=== PATIENT | male | born 1940 | race Caucasian/White ===

== ENCOUNTER 2017-01-05 11:55 | Inpatient (IN) ==
[2017-01-05] MEDS ORDERED: methylPREDNISolone 125 MG/2 ML VIAL IVP ONE (12:25)
[2017-01-05] MEDS ORDERED: Ipratropium/Albuterol Neb 3 ML IH ONE (12:25)
--- NOTE | 2017-01-05 12:53 | Emergency Department Note ---
Disposition Clinical Impression: Metastatic cancer, VINCENT (acute kidney injury), Hematuria Dyspnea Qualifiers: Dyspnea type: dyspnea on exertion Qualified Code(s): R06.09 - Other forms of dyspnea Disposition: Admitted As Inpatient Condition: Fair Time of Disposition: 15:58 General Adult HPI - General Chief complaint: ED Abdominal Pain Stated complaint: blood in urine Time Seen by Provider: 01/05/17 12:06 Source: patient Limitations: no limitations Nursing Notes Reviewed: Yes Vital Signs Reviewed: Yes - History of Present Illness HPI Narrative: Patient is a 76-year-old male who presents to [facility] ED with a chief complaint of worsening pneumonia and blood in his urine. States he was diagnosed with pneumonia last week at [facility] and was given a prescription for clindamycin and prednisone. States he has continued to have difficulty breathing especially with exertion. Denies any chest pain. Also states he has had symptoms of dysuria for the last week and then blood in his urine over the last 2 days. He has had some suprapubic abdominal pain as well as right-sided abdominal pain. Past medical history significant for right nephrectomy due to renal cell carcinoma, COPD. Patient states he continues to smoke. Onset (ago): day(s) Location: abdomen Radiation: non-radiation Pain Severity: moderate Pain Scale: 7 Quality: aching Consistency: constant Improves with: nothing Worsens with: movement Associated symptoms: Reports: cough, shortness of breath, weakness. Denies: chest pain, fever/chills, nausea/vomiting Treatments Prior to Arrival: other (clindamycin, prednisone) - Related Data Home Medications Medication Instructions Recorded Confirmed Albuterol Sulfate [Proair Hfa] 2 puff IH Q4H PRN 04/21/16 12/30/16 Famotidine [Pepcid] 20 mg PO BID 04/21/16 12/30/16 Gabapentin [Neurontin] 600 mg PO TID 04/21/16 12/30/16 Lisinopril [Zestril] 20 mg PO DAILY 04/21/16 12/30/16 Nebivolol [Bystolic] 5 mg PO DAILY 04/21/16 12/30/16 Simvastatin [Zocor] 40 mg PO HS 04/21/16 12/30/16 TraMADol [Ultram] 50 mg PO TID PRN 06/26/16 03/06/17 Albuterol Neb [Proventil Neb] 2.5 mg IH Q4HR PRN 12/30/16 12/30/16 Previous Rx's Medication Instructions Recorded Tamsulosin HCl [Flomax] 0.4 mg PO DAILY #30 cap.er.24h 09/14/16 Guaifenesin/Dm/Pseudoephedrine 1 each PO BID #20 tablet 12/16/16 [Capmist Dm Tablet] Clindamycin HCl [Cleocin HCl] 150 mg PO QID #40 capsule 12/30/16 D-Methorphan Hb/P-Epd HCl/Bpm 10 ml PO Q6-8H PRN #240 ml 12/30/16 [Bromfed Dm Cough Syrup] PredniSONE 40 mg PO DAILY #10 tablet 12/30/16 Allergies Allergy/AdvReac Type Severity Reaction Status Date / Time codeine Allergy Vomiting Verified 12/16/16 13:06 Penicillins [PCN] Allergy Vomiting Verified 12/16/16 13:06 All systems ED: reviewed and negative except as stated. Past Medical History - Past Medical History Attestation: Yes The following information was validated with the patient. Source: patient Medical history: Reports: arthritis, cancer, COPD, GERD, hyperlipidemia, hypertension, renal disease Surgical history: Reports: appendectomy, other (Nephrectomy) Psychiatric history: Reports: no psych history - Social History Smoking Status: Current every day smoker Smokeless Tobacco Status: No Alcohol use: Reports: none Drug use: Reports: none Physical Exam - General Limitations: no limitations General appearance: alert, in no apparent distress - Head Head exam: atraumatic, normocephalic, normal inspection - Eye Eye exam: Present: normal appearance, PERRL, EOMI - ENT ENT exam: normal exam, normal oropharynx, mucous membranes moist - Neck Neck exam: Present: normal inspection, full ROM, trachea midline - Chest Chest inspection: Present: normal inspection, symmetric chest wall rise - Respiratory Respiratory exam: Present: wheezes (b/l) - Cardiovascular Cardiovascular exam: Present: regular rate, normal rhythm, normal heart sounds - Abdominal Exam Abdominal exam: Present: soft, tenderness, normal bowel sounds. Absent: distention, guarding, rebound, rigidity Abdominal tenderness: Present: RLQ, moderate - Extremities Exam Extremities exam: Present: normal inspection, full ROM. Absent: tenderness, pedal edema - Back Exam Back exam: Present: normal inspection, full ROM. Absent: tenderness - Neurological Exam Neurological exam: Present: alert, oriented X3 - Psychiatric Psychiatric exam: Present: normal affect, normal mood - Skin Skin exam: Present: warm, dry, intact, normal color Course Course Narrative: Patient seen and examined. Recent diagnosis of pneumonia as well as blood in the urine. We will do a cardiopulmonary workup as well as CT abdomen and pelvis. He is very tender in the abdomen and due to his history of renal cell carcinoma and now hematuria, we will get some imaging. - Reevaluation(s) Reevaluation #1: Patient's lab work showed worsening renal function, elevated liver function tests, mild lactic acidosis. His CT abdomen and pelvis shows likely liver metastasis and bony metastasis. This is new. He has never seen oncology before. I spoke with the urologist Dr. Donovan about the hematuria and blood clots in his bladder. Dr. Donovan came to the bedside to irrigate the bladder. Will consult on patient on the floor. I spoke with hospitalist Sherly Torres who has accepted patient for admission. Time: 15:57 Vital Signs Temperature 97.7 F 01/05/17 11:57 Pulse Rate 77 01/05/17 11:57 Respiratory Rate 16 01/05/17 11:57 Blood Pressure 125/78 01/05/17 11:57 O2 Sat by Pulse Oximetry 98 01/05/17 11:57 Temperature 97.7 F 01/05/17 11:57 Pulse Rate 73 01/05/17 13:35 Respiratory Rate 14 01/05/17 13:35 Blood Pressure 113/72 01/05/17 13:35 O2 Sat by Pulse Oximetry 95 01/05/17 13:35 Oxygen Delivery Oxygen Delivery Room Air Medical Decision Making - Medical Records Medical records reviewed: Yes I reviewed the patient's medical records. - Lab Data Lab results reviewed: Yes I reviewed the patient's lab results. Result diagrams: 01/05/17 13:21 01/05/17 13:21 Lab Results 01/05/17 01/05/17 01/05/17 Range/Units 12:30 13:21 13:21 WBC 11.2 H (4.3-11.1) K/mcL RBC 4.39 (4.19-5.50) M/mcL Hgb 12.8 L (12.9-16.9) g/dL Hct 40.8 (37.5-50.1) % MCV 92.9 (83.0-100.0) fL MCH 29.2 (28.0-33.3) pg MCHC 31.4 L (31.6-35.5) g/dL RDW 13.5 (11.5-14.5) % Plt Count 206 (140-400) K/mcL MPV 10.1 (9.4-12.4) fL Immature Gran % 1.3 (0-4) % Seg Neutrophils % 80.0 % Lymphocytes % 7.2 % Monocytes % 10.0 % Eosinophils % 1.3 % Basophils % 0.2 % Neutrophils # 8.9 (1.6-8.9) K/mcL Lymphocytes # 0.8 (0.6-4.6) K/mcL Monocytes # 1.1 (0.0-1.3) K/mcL Eosinophils # 0.1 (0.0-0.6) K/mcL Basophils # 0.0 (0.0-0.2) K/mcL Sodium 135 L (136-145) mEq/L Potassium 5.5 H (3.5-4.5) mEq/L Chloride 102 (98-109) mEq/L Carbon Dioxide 21 (19-29) mEq/L BUN 65 H (8-26) mg/dL Creatinine 2.12 H (0.72-1.25) mg/dL Est GFR ( Amer) 37 L (> 60) Est GFR (Non-Af Amer) 31 L (> 60) BUN/Creatinine Ratio 31 H (6-26) Glucose 130 H (70-99) mg/dL POC Glucose (58-89) Calculated Osmolality 300 (280-300) Lactic Acid (0.5-2.2) mmol/L Calcium 10.5 (8.6-10.8) mg/dL Total Bilirubin (0.2-1.2) mg/dL Direct Bilirubin (0.0-0.5) mg/dL Indirect Bilirubin (0.0-1.2) mg/dL AST (5-34) Units/L ALT (0-55) Units/L Alkaline Phosphatase (38-126) Units/L Troponin I (0-0.03) ng/mL B-Natriuretic Peptide (0-100) pg/mL Serum Total Protein (6.0-8.3) g/dL Albumin (3.5-5.0) g/dL Globulin (2.4-3.5) g/dL Albumin/Globulin Ratio (1.1-2.2) Ur Specimen Adequacy See below A Urine Color Red A (Yellow) Urine Clarity Turbid A (Clear) Urine pH 6.0 (5.0-8.0) pH Units Ur Specific [place] 1.023 (1.010-1.025) Urine Protein >=300 H (Neg-Trace) mg/dL Urine Glucose (UA) Normal (Normal) mg/dL Urine Ketones Negative (Negative) mg/dL Urine Blood Large H (Negative) Urine Nitrite Negative (Negative) Urine Bilirubin Negative (Negative) Urine Urobilinogen Normal (Normal) mg/dL Ur Leukocyte Esterase Negative (Negative) Urine Microscopic RBC TNTC H (0-3) per hpf Urine Microscopic WBC 15-30 H (0-3) per hpf Ur Squamous Epith Cells Few (None-Few) per lpf Amorphous Sediment Few (Few) Urine Bacteria Many H (None-Few) per hpf Granular Casts Few H (None Seen) per lpf Ur Culture Indicated? YES A (NO) 01/05/17 01/05/17 01/05/17 Range/Units 13:21 13:21 13:21 WBC (4.3-11.1) K/mcL RBC (4.19-5.50) M/mcL Hgb (12.9-16.9) g/dL Hct (37.5-50.1) % MCV (83.0-100.0) fL MCH (28.0-33.3) pg MCHC (31.6-35.5) g/dL RDW (11.5-14.5) % Plt Count (140-400) K/mcL MPV (9.4-12.4) fL Immature Gran % (0-4) % Seg Neutrophils % % Lymphocytes % % Monocytes % % Eosinophils % % Basophils % % Neutrophils # (1.6-8.9) K/mcL Lymphocytes # (0.6-4.6) K/mcL Monocytes # (0.0-1.3) K/mcL Eosinophils # (0.0-0.6) K/mcL Basophils # (0.0-0.2) K/mcL Sodium (136-145) mEq/L Potassium (3.5-4.5) mEq/L Chloride (98-109) mEq/L Carbon Dioxide (19-29) mEq/L BUN (8-26) mg/dL Creatinine (0.72-1.25) mg/dL Est GFR ( Amer) (> 60) Est GFR (Non-Af Amer) (> 60) BUN/Creatinine Ratio (6-26) Glucose (70-99) mg/dL POC Glucose (58-89) Calculated Osmolality (280-300) Lactic Acid 2.6 H (0.5-2.2) mmol/L Calcium (8.6-10.8) mg/dL Total Bilirubin (0.2-1.2) mg/dL Direct Bilirubin (0.0-0.5) mg/dL Indirect Bilirubin (0.0-1.2) mg/dL AST (5-34) Units/L ALT (0-55) Units/L Alkaline Phosphatase (38-126) Units/L Troponin I 0.00 (0-0.03) ng/mL B-Natriuretic Peptide 85 (0-100) pg/mL Serum Total Protein (6.0-8.3) g/dL Albumin (3.5-5.0) g/dL Globulin (2.4-3.5) g/dL Albumin/Globulin Ratio (1.1-2.2) Ur Specimen Adequacy Urine Color (Yellow) Urine Clarity (Clear) Urine pH (5.0-8.0) pH Units Ur Specific [place] (1.010-1.025) Urine Protein (Neg-Trace) mg/dL Urine Glucose (UA) (Normal) mg/dL Urine Ketones (Negative) mg/dL Urine Blood (Negative) Urine Nitrite (Negative) Urine Bilirubin (Negative) Urine Urobilinogen (Normal) mg/dL Ur Leukocyte Esterase (Negative) Urine Microscopic RBC (0-3) per hpf Urine Microscopic WBC (0-3) per hpf Ur Squamous Epith Cells (None-Few) per lpf Amorphous Sediment (Few) Urine Bacteria (None-Few) per hpf Granular Casts (None Seen) per lpf Ur Culture Indicated? (NO) 01/05/17 01/05/17 Range/Units 13:21 14:34 WBC (4.3-11.1) K/mcL RBC (4.19-5.50) M/mcL Hgb (12.9-16.9) g/dL Hct (37.5-50.1) % MCV (83.0-100.0) fL MCH (28.0-33.3) pg MCHC (31.6-35.5) g/dL RDW (11.5-14.5) % Plt Count (140-400) K/mcL MPV (9.4-12.4) fL Immature Gran % (0-4) % Seg Neutrophils % % Lymphocytes % % Monocytes % % Eosinophils % % Basophils % % Neutrophils # (1.6-8.9) K/mcL Lymphocytes # (0.6-4.6) K/mcL Monocytes # (0.0-1.3) K/mcL Eosinophils # (0.0-0.6) K/mcL Basophils # (0.0-0.2) K/mcL Sodium (136-145) mEq/L Potassium (3.5-4.5) mEq/L Chloride (98-109) mEq/L Carbon Dioxide (19-29) mEq/L BUN (8-26) mg/dL Creatinine (0.72-1.25) mg/dL Est GFR ( Amer) (> 60) Est GFR (Non-Af Amer) (> 60) BUN/Creatinine Ratio (6-26) Glucose (70-99) mg/dL POC Glucose 124 H (58-89) Calculated Osmolality (280-300) Lactic Acid (0.5-2.2) mmol/L Calcium (8.6-10.8) mg/dL Total Bilirubin 0.5 (0.2-1.2) mg/dL Direct Bilirubin 0.3 (0.0-0.5) mg/dL Indirect Bilirubin 0.2 (0.0-1.2) mg/dL AST 36 H (5-34) Units/L ALT 59 H (0-55) Units/L Alkaline Phosphatase 262 H (38-126) Units/L Troponin I (0-0.03) ng/mL B-Natriuretic Peptide (0-100) pg/mL Serum Total Protein 7.6 (6.0-8.3) g/dL Albumin 2.7 L (3.5-5.0) g/dL Globulin 4.9 H (2.4-3.5) g/dL Albumin/Globulin Ratio 0.6 L (1.1-2.2) Ur Specimen Adequacy Urine Color (Yellow) Urine Clarity (Clear) Urine pH (5.0-8.0) pH Units Ur Specific [place] (1.010-1.025) Urine Protein (Neg-Trace) mg/dL Urine Glucose (UA) (Normal) mg/dL Urine Ketones (Negative) mg/dL Urine Blood (Negative) Urine Nitrite (Negative) Urine Bilirubin (Negative) Urine Urobilinogen (Normal) mg/dL Ur Leukocyte Esterase (Negative) Urine Microscopic RBC (0-3) per hpf Urine Microscopic WBC (0-3) per hpf Ur Squamous Epith Cells (None-Few) per lpf Amorphous Sediment (Few) Urine Bacteria (None-Few) per hpf Granular Casts (None Seen) per lpf Ur Culture Indicated? (NO) - Radiology Data Radiology results reviewed: Yes I reviewed the patient's radiology results. Chest X-Ray 01/05/17 12:25 IMPRESSION: Right basilar atelectasis or scarring. D/ / Tayo Hill MD / Tayo Hill MD Interpreting Provider: Tayo Hill MD Abdomen/Pelvis CT 01/05/17 12:29 IMPRESSION: Interval development of widespread diffuse suspected hepatic metastasis and scattered bony metastasis. Question developing nodule left adrenal gland. Mild left-sided hydronephrosis. Hemorrhagic clot is noted within the bladder. D/ / 01/05/2017 14:22:47 Mele Jaramillo MD / meryl Interpreting Provider: Mele Jaramillo MD - EKG Data EKG #1 EKG attestation: Yes I reviewed and interpreted this EKG. EKG results narrative: EKG done at 1249 shows normal sinus rhythm with a rate of [address] elevation or depression. Left axis deviation. Inverted T-wave in lead V3 and V4 Attestation Statement - Attestation Attestation: Patient was seen with resident physician. I reviewed the history, physical, assessment and plan, and agree with the findings. I also personally evaluated this patient and had [id number] time with this patient. 76-year-old male presents to the emergency Department chief complaint of worsening pneumonia, and blood in his urine. Patient states that he was treated with an antibiotic for pneumonia approximately of last week, he says he has not gotten any better his cough is actually gotten worse, and now he has blood in his urine. He says the blood occasionally is mild occasionally is more significant is not significant blood clots that he is aware of. He also has some right lower quadrant and suprapubic abdominal pain. The patient continues to be short of breath he is not any chest pain. He is unsure about fevers. On examination ENT is unremarkable. Lungs moving good air has some crackles in the bases bilaterally. Heart is regular rhythm and rate. Abdomen is soft there is tenderness in the suprapubic area in the right lower quadrant without guarding or rigidity. Neurologically the patient's intact. We will do a workup for pneumonia and check for UTI. We will also scan the abdomen to look for abnormalities that could be causing his hematuria. Patient does have only 1 kidney as it was removed secondary to tumor. Findings a CT scan unfortunately revealed what appear to be metastatic liver lesions including some lytic lesions. Patient also has appears to be acute renal failure with some [place] which may or may not be caused by the blood clot in his bladder. Urology was consult and they did irrigate the bladder wall emergency department. With a combination of cancer diagnosis, acute renal failure, hematuria of unknown origin, and dyspnea. We felt that hospitalization was clearly indicated. Hospitalist service was notified and admission was arranged. I agree with the resident physician assessment and plan.
[2017-01-05 12:58] LABS: Bilirubin,Urine Negative (Negative); Blood,Urine Large (Negative); Clarity,Urine Turbid (Clear); Color,Urine Red (Yellow); Glucose,Urine (UA) Normal (Normal); Ketones,Urine Negative (Negative); Leukocyte Esterase,Urine Negative (Negative); Nitrite,Urine Negative (Negative); Protein,Urine >=300 mg/dL (Neg-Trace); Specific Gravity,Urine 1.023 (1.010-1.025); Urobilinogen,Urine Normal (Normal)
[2017-01-05 13:01] LABS: Bacteria,Urine Many per hpf (None-Few); RBC,Urine TNTC per hpf (0-3); WBC,Urine 15-30 per hpf (0-3)
[2017-01-05 13:02] LABS: Squamous Epithelial Cell,Urine Few per lpf (None-Few)
[2017-01-05 13:04] LABS: Amorphous Sediment,Urine Few (Few); Granular Casts,Urine Few per lpf (None Seen)
[2017-01-05 13:30] LABS: Basophils % 0.2 %; Eosinophils # 0.1 K/mcL (0.0-0.6); Eosinophils % 1.3 %; Hematocrit 40.8 % (37.5-50.1); Hemoglobin 12.8 g/dL (12.9-16.9); Immature Granulocytes % 1.3 % (0-4); Lymphocytes # 0.8 K/mcL (0.6-4.6); Lymphocytes % 7.2 %; Mean Corpuscular HGB Conc 31.4 g/dL (31.6-35.5); Mean Corpuscular Hemoglobin 29.2 pg (28.0-33.3); Mean Corpuscular Volume 92.9 fL (83.0-100.0); Mean Platelet Volume 10.1 fL (9.4-12.4); Monocytes # 1.1 K/mcL (0.0-1.3); Neutrophils # 8.9 K/mcL (1.6-8.9); Platelet Count 206 K/mcL (140-400); Red Blood Count 4.39 M/mcL (4.19-5.50); Red Cell Distribution Width 13.5 % (11.5-14.5)
[2017-01-05 13:43] LABS: Calcium 10.5 mg/dL (8.6-10.8); Potassium 5.5 mEq/L (3.5-4.5)
[2017-01-05 13:45] LABS: Albumin 2.7 g/dL (3.5-5.0); Albumin/Globulin Ratio 0.6 (1.1-2.2); Bilirubin,Direct 0.3 mg/dL (0.0-0.5); Bilirubin,Indirect 0.2 mg/dL (0.0-1.2); Bilirubin,Total 0.5 mg/dL (0.2-1.2); Globulin 4.9 g/dL (2.4-3.5); Total Protein 7.6 g/dL (6.0-8.3)
--- NOTE | 2017-01-05 15:38 | Urology - Consult Note ---
Date of Encounter: 01/05/17 Time of Encounter: 15:36 - Assessment and Plan (1) Gross hematuria Current Visit: No Status: Acute Assessment and plan: I placed a 20 Maldivian 2-way catheter. 2 L of sterile water was irrigated through his bladder and all the clot was removed. The irrigation then became colorless. He tolerated the procedure well. He will be admitted to the hospitalist service in regards to his renal insufficiency a new metastatic disease. Also we will follow along. Continue the Santos catheter for now. Urine culture from January 03, 2017 was negative. (2) Right renal mass Current Visit: No Status: Resolved Assessment and plan: He has metastatic renal cell carcinoma. We may need to consider oncology consultation. Urology CN:HPI Consult date: 01/05/17 Reason for consult Urology: Gross Hematuria Requesting physician: Mirtha Prasad History of present illness: 76-year-old man status post right hand-assisted laparoscopic nephrectomy presents with gross hematuria and concern for metastatic renal cell carcinoma. The bleeding started over the last 2 days. It is been bright red. He has been able to void, but he has noticed some clots. He notes some dysuria as well. He denies any lightheadedness or dizziness. He had a right nephrectomy on September 12, 2016 with pathology showing a pT3a renal carcinoma with a positive margin at the vein. Past Med Surg Social Fam HX - Past Medical History Medical history: arthritis, cancer, COPD, GERD, hyperlipidemia, hypertension, renal disease Psychiatric history: no psych history - Past Surgical History Surgical History: appendectomy, other (Nephrectomy) - Social History Smoking Status: Current every day smoker Smokeless Tobacco Status: No Alcohol use: none Drug use: none Medications and Allergies Albuterol Sulfate [Proair Hfa] 2 puff IH Q4H PRN 04/21/16 [History] Famotidine [Pepcid] 20 mg PO BID 04/21/16 [History] Gabapentin [Neurontin] 600 mg PO TID 04/21/16 [History] Lisinopril [Zestril] 20 mg PO DAILY 04/21/16 [History] Nebivolol [Bystolic] 5 mg PO DAILY 04/21/16 [History] Simvastatin [Zocor] 40 mg PO HS 04/21/16 [History] TraMADol [Ultram] 50 mg PO TID PRN 04/21/16 [History] Tamsulosin HCl [Flomax] 0.4 mg PO DAILY #30 cap.er.24h 09/14/16 [Rx] Guaifenesin/Dm/Pseudoephedrine [Capmist Dm Tablet] 1 each PO BID #20 tablet [Rx] Albuterol Neb [Proventil Neb] 2.5 mg IH Q4HR PRN 12/30/16 [History] Clindamycin HCl [Cleocin HCl] 150 mg PO QID #40 capsule 12/30/16 [Rx] D-Methorphan Hb/P-Epd HCl/Bpm [Bromfed Dm Cough Syrup] 10 ml PO Q6-8H PRN #240 ml 12/30/16 [Rx] PredniSONE 40 mg PO DAILY #10 tablet 12/30/16 [Rx] Allergies codeine Allergy (Verified 12/16/16 13:06) Vomiting Penicillins [PCN] Allergy (Verified 12/16/16 13:06) Vomiting Review of Systems - Constitutional no chills, no fever(s) - EENT Nose, mouth and throat: no dizziness - Cardiovascular no chest pain - Respiratory no dyspnea - Gastrointestinal no nausea, no vomiting - Genitourinary dysuria, hematuria, no flank pain - Musculoskeletal no back pain - Integumentary no erythema, no rash - Neurological no weakness - Psychiatric no suicidal ideation - Hematologic/Lymphatic no easy bleeding - Allergic/Immunologic no wheezing Exam Initial Vital Signs Temp Pulse Resp BP Pulse Ox 97.7 F 77 16 125/78 98 01/05/17 11:57 01/05/17 11:57 01/05/17 11:57 01/05/17 11:57 01/05/17 11:57 - General physical appearance Present: well developed, well nourished, no distress - Eyes Absent: icteric - ENT Present: normal nares - Neck Present: trachea midline - Respiratory Present: normal respiratory effort - Cardiovascular Cardiovascular exam IM: RRR - Abdomen Abdomen: Present: soft - Genitourinary normal penis with no external lesions Urology Results - Labs 01/05/17 13:21 01/05/17 13:21 Abnormal lab results WBC 11.2 K/mcL (4.3-11.1) H 01/05/17 13:21 Hgb 12.8 g/dL (12.9-16.9) L 01/05/17 13:21 MCHC 31.4 g/dL (31.6-35.5) L 01/05/17 13:21 Sodium 135 mEq/L (136-145) L 01/05/17 13:21 Potassium 5.5 mEq/L (3.5-4.5) H 01/05/17 13:21 BUN 65 mg/dL (8-26) H 01/05/17 13:21 Creatinine 2.12 mg/dL (0.72-1.25) H 01/05/17 13:21 Est GFR ( Amer) 37 (> 60) L 01/05/17 13:21 Est GFR (Non-Af Amer) 31 (> 60) L 01/05/17 13:21 BUN/Creatinine Ratio 31 (6-26) H 01/05/17 13:21 Glucose 130 mg/dL (70-99) H 01/05/17 13:21 POC Glucose 124 (58-89) H 01/05/17 14:34 Lactic Acid 2.6 mmol/L (0.5-2.2) H 01/05/17 13:21 AST 36 Units/L (5-34) H 01/05/17 13:21 ALT 59 Units/L (0-55) H 01/05/17 13:21 Alkaline Phosphatase 262 Units/L (38-126) H 01/05/17 13:21 Albumin 2.7 g/dL (3.5-5.0) L 01/05/17 13:21 Globulin 4.9 g/dL (2.4-3.5) H 01/05/17 13:21 Albumin/Globulin Ratio 0.6 (1.1-2.2) L 01/05/17 13:21 Ur Specimen Adequacy See below A 01/05/17 12:30 Urine Color Red (Yellow) A 01/05/17 12:30 Urine Clarity Turbid (Clear) A 01/05/17 12:30 Urine Protein >=300 mg/dL (Neg-Trace) H 01/05/17 12:30 Urine Blood Large (Negative) H 01/05/17 12:30 Urine Microscopic RBC TNTC per hpf (0-3) H 01/05/17 12:30 Urine Microscopic WBC 15-30 per hpf (0-3) H 01/05/17 12:30 Urine Bacteria Many per hpf (None-Few) H 01/05/17 12:30 Granular Casts Few per lpf (None Seen) H 01/05/17 12:30 Ur Culture Indicated? YES (NO) A 01/05/17 12:30 Diabetes panel 01/05/17 01/05/17 Range/Units 13:21 13:21 Sodium 135 L (136-145) mEq/L Potassium 5.5 H (3.5-4.5) mEq/L Chloride 102 (98-109) mEq/L Carbon Dioxide 21 (19-29) mEq/L BUN 65 H (8-26) mg/dL Creatinine 2.12 H (0.72-1.25) mg/dL Glucose 130 H (70-99) mg/dL Calcium 10.5 (8.6-10.8) mg/dL AST 36 H (5-34) Units/L ALT 59 H (0-55) Units/L Alkaline Phosphatase 262 H (38-126) Units/L Albumin 2.7 L (3.5-5.0) g/dL Calcium panel 01/05/17 01/05/17 Range/Units 13:21 13:21 Calcium 10.5 (8.6-10.8) mg/dL Albumin 2.7 L (3.5-5.0) g/dL Pituitary panel 01/05/17 Range/Units 13:21 Sodium 135 L (136-145) mEq/L Potassium 5.5 H (3.5-4.5) mEq/L Chloride 102 (98-109) mEq/L Carbon Dioxide 21 (19-29) mEq/L BUN 65 H (8-26) mg/dL Creatinine 2.12 H (0.72-1.25) mg/dL Glucose 130 H (70-99) mg/dL Calcium 10.5 (8.6-10.8) mg/dL Adrenal panel 01/05/17 01/05/17 Range/Units 13:21 13:21 Sodium 135 L (136-145) mEq/L Potassium 5.5 H (3.5-4.5) mEq/L Chloride 102 (98-109) mEq/L Carbon Dioxide 21 (19-29) mEq/L BUN 65 H (8-26) mg/dL Creatinine 2.12 H (0.72-1.25) mg/dL Glucose 130 H (70-99) mg/dL Calcium 10.5 (8.6-10.8) mg/dL Total Bilirubin 0.5 (0.2-1.2) mg/dL AST 36 H (5-34) Units/L ALT 59 H (0-55) Units/L Alkaline Phosphatase 262 H (38-126) Units/L Albumin 2.7 L (3.5-5.0) g/dL All other labs normal. - Imaging CT scan - abdomen: report reviewed, image reviewed CT scan - pelvis: report reviewed, image reviewed Procedures:Urology - Catheter Insertion (Urinary) Prophylactic antibiotics given: No Bladder Scan/Ultrasound used before catheterization: No Estimated amount of urin (mLs): 300 Preparation: Povidone-Iodine Type of catheter inserted: 2 way Catheter Maldivian Size: 20 Topical anesthesia used: Yes Results: successfully catheterized-immediate flow Urine Appearance: Hematuria Patient tolerated procedure: well Complications: none Additional comments: I used a 20 [place] two-way catheter. After irrigating out his bladder with 2 L of water, the urine was clear. Consult Discharge Plan - Plan Referrals: NO,PCP [Primary Care Provider] -
[2017-01-05] MEDS ORDERED: Ondansetron 4 MG/2 ML VIAL IVP PRN (19:00)
--- NOTE | 2017-01-05 19:14 | Internal Med History&Physical ---
<Sherly Torres - Last Filed: 01/05/17 23:21> Date of Encounter: 01/05/17 Time of Encounter: 18:00 Assessment and Plan (1) Metastatic cancer Current visit: Yes Status: Acute 1 patient has a past history of right nephrectomy due to renal cell carcinoma. He has been experiencing dysuria as well as hematuria the past week. CT of abdomen and pelvis revealed possible liver metastases and bone metastases. Patient has never seen oncology before we will consult oncology 2 presently pain controlled we will continue with present pain regime (2) UTI (urinary tract infection) Current visit: Yes Status: Acute 1 urinalysis revealed wbc and bacteria. Will initiate on Rocephin 3 obtain urine culture as well as blood culture Qualifiers: Urinary tract infection type: site unspecified Hematuria presence: with hematuria Qualified Code(s): N39.0 - Urinary tract infection, site not specified; R31.9 - Hematuria, unspecified (3) Hyperkalemia Current visit: Yes Status: Acute 1 potassium is 5.5 we will treat with Keflex A calcium gluconate and bicarbonate recheck potassium (4) DVT prophylaxis Current visit: Yes Status: Acute AILYN joshuaphuc (5) VINCENT (acute kidney injury) Current visit: Yes Status: Acute 1 she did undergo right nephrectomy last year. His creatinine was 1.8 today to 2.12. We will continue to monitor creatinines 2 we will give IV fluids 3 avoid nephrotoxins 4 renal dose antibiotics (6) Hematuria Current visit: Yes Status: Acute 1 has been experiencing hematuria for the past 2 days he does have a history of renal cell carcinoma with right nephrectomy last year. CT of abdomen and pelvis does demonstrate metastasis to liver and bony metastases. Santos placed. 2 urology saw the patient and irrigated Santos. Urology consult 3 we will treat for UTI (7) COPD exacerbation Current visit: No Status: Acute 1 she was treated last week for pneumonia however chest x-ray this week appears clear with just atelectasis. Suspect shortness of breath related to COPD exacerbation we will continue with steroids at this time as well as DuoNeb's and oxygen as needed Internal Medicine - H&P: HPI Chief complaint: Shortness of breath and hematuria Admitted From: Emergency Dept Plans for Post Hospital Care: Home History of present illness: Mr. Ngo is a 76 year old male past medical history of right nephrectomy due to renal cell carcinoma COPD current smoker GERD hypertension. Currently patient is diagnosed last week at [facility] with pneumonia and was given a prescription for clindamycin as well as prednisone. He taking medication as prescribed however he continued to have difficulty breathing especially on exertion. He denies any fevers chills nausea vomiting chest pain. He did take breathing treatments however they did not relieve his symptoms. He had a nonproductive cough. Throughout this week he has been experiencing dysuria and within the past 2 days he has noted hematuria. He has also had l sharp stabbing pain right lower quadrant extending to suprapubic area. The pain is worse upon coughing because way with rest. He had a right nephrectomy in August 2016 due to renal cell carcinoma and had been doing well up until the past 2 weeks. He does express that he has had a 9-12 pound weight loss and a little over a week. He presented to the ER with the above complaints according to records he had worsening renal function with elevated liver functions and mild lactose acidosis. CT of abdomen and pelvis revealed likely liver metastases and bony metastases which is new from previous CT. EKG showed normal sinus rhythm. Urology was consulted and Dr. Donovan saw patient at bedside irrigated bladder until clear. Urinalysis does reveal UTI. Patient was given albuterol as well as steroid has been admitted for further work up evaluation presently patient denies any chest pain shortness of breath he is single side effect with Santos draining bright red urine. Does not appear to be in any respiratory distress upon auscultation his lungs sounds are clear. His abdomen is soft and round tender to palpation in right lower quadrant with no guarding. He is hemodynamically stable at this timeI reviewed this case with Dr England who agrees with plan Past Med Surg Social Fam HX - Past Medical History Medical history: arthritis, cancer, COPD, GERD, hyperlipidemia, hypertension, renal disease Psychiatric history: no psych history - Past Surgical History Surgical History: appendectomy, other - Social History Smoking Status: Current every day smoker Packs per day: 3 Smokeless Tobacco Status: No Alcohol use: none Drug use: none - Family History Mother Living Status: Cause of : Aneurysm Hx Family Cardiac Disorders: Yes Hx Family Respiratory Disorders: Yes (COPD) Hx Family Cancer: Yes (Lung) Hx Family GI Disorders: No Hx Family Genitourinary Disorders: No Hx Family Endocrine Disorder: No Hx Family Musculoskeletal Disorders: No Hx Family Neuromuscular Disorders: No Hx Family Neurologic Disorders: No Hx Family HEENT Disorders: No Hx Family Autoimmune Disorders: No Hx Family Reproductive Disorders: No Hx Family Medical Disorders: No Internal Medicine - H&P: Meds Albuterol Sulfate [Proair Hfa] 2 puff IH Q4H PRN 04/21/16 [History] Famotidine [Pepcid] 20 mg PO BID 04/21/16 [History] Gabapentin [Neurontin] 600 mg PO TID 04/21/16 [History] Lisinopril [Zestril] 20 mg PO DAILY 04/21/16 [History] Nebivolol [Bystolic] 5 mg PO DAILY 04/21/16 [History] Simvastatin [Zocor] 40 mg PO HS 04/21/16 [History] TraMADol [Ultram] 50 mg PO TID PRN 04/21/16 [History] Tamsulosin HCl [Flomax] 0.4 mg PO DAILY #30 cap.er.24h 09/14/16 [Rx] Albuterol Neb [Proventil Neb] 2.5 mg IH Q4HR PRN 12/30/16 [History] Clindamycin HCl [Cleocin HCl] 150 mg PO QID #40 capsule 12/30/16 [Rx] D-Methorphan Hb/P-Epd HCl/Bpm [Bromfed Dm Cough Syrup] 10 ml PO Q6-8H PRN #240 ml 12/30/16 [Rx] PredniSONE 40 mg PO DAILY #10 tablet 12/30/16 [Rx] Acetaminophen [Tylenol] 650 mg PO BID PRN 01/05/17 [History] Allergies codeine Adverse Reaction (Verified 01/05/17 16:06) Vomiting Penicillins [PCN] Adverse Reaction (Verified 01/05/17 16:06) Vomiting All Systems PM: A 10-system review of systems was performed and is negative for pertinent findings except as documented above in the HPI. - Constitutional Constitutional: anorexia, weight loss - Cardiovascular Cardiovascular ROS IM: no chest pain, no diaphoresis, no dyspnea, no lightheadedness, no palpitations, no syncope - Respiratory Respiratory: cough, dyspnea on exertion - Gastrointestinal Gastrointestinal: abdominal pain - Genitourinary Genitourinary ROS male: dysuria, hematuria - Musculoskeletal Musculoskeletal ROS IM: no numbness, no tingling - Integumentary Integumentary IM: no rash, no unusual bruising - Neurological Neurological ROS: no confusion, no convulsions, no focal weakness, no numbness, no tingling, no tremor(s) - Constitutional Vitals: Temp Pulse Resp BP Pulse Ox 97.5 F L 69 18 168/90 97 01/05/17 16:41 01/05/17 16:41 01/05/17 16:41 01/05/17 16:41 01/05/17 16:41 General appearance: Present: A&O X 3, answers questions appropriately - Head Head exam: Present: atraumatic, normocephalic - Respiratory Respiratory exam: Present: CTAB. Absent: accessory muscle use, rales, rhonchi, wheezes - Cardiovascular Cardiovascular exam: Present: RRR, +S1, +S2. Absent: diastolic murmur, gallop, rubs, systolic murmur - GI/Abdominal GI/Abdominal exam: Present: normal bowel sounds, soft, no peritoneal signs. Absent: distended, tenderness - Additional comments: Noted dark red urine in Santos bag - Extremities Exam Extremities exam: Present: warm, radial pulses palpable and symetrical. Absent : calf tenderness, cyanotic, pedal edema - Neurological Exam Neurological exam: Present: CN II-XII intact, oriented X3, no focal deficits. Absent: pronater drift, facial droop, speech deficit - Skin Skin exam: Present: dry, intact Internal Med - H&P Results - Labs CBC & Chem 7: 01/05/17 19:11 01/05/17 22:47 - EKG Data EKG shows normal: sinus rhythm - Diagnostic Studies Other Images Additional comments: Chest X-Ray 01/05/17 12:25 IMPRESSION: Right basilar atelectasis or scarring. D/ / Tayo Hill MD / Tayo Hill MD Interpreting Provider: Tayo Hill MD Abdomen/Pelvis CT 01/05/17 12:29 IMPRESSION: Interval development of widespread diffuse suspected hepatic metastasis and scattered bony metastasis. Question developing nodule left adrenal gland. Mild left-sided hydronephrosis. Hemorrhagic clot is noted within the bladder. D/ / 01/05/2017 14:22:47 Mele Jaramillo MD / meryl Interpreting Provider: Mele Jaramillo MD - VTE Reasons for not Prescribing Prophylaxis: Medical contraindication <Jesus England R - Last Filed: 01/05/17 23:38> Internal Medicine - H&P: HPI History of present illness: Mr. Ngo is a 76 year old male All Systems PM: A 10-system review of systems was performed and is negative for pertinent findings except as documented above in the HPI. - Constitutional Vitals: Temp Pulse Resp BP Pulse Ox 97.6 F 70 18 135/75 93 L 01/05/17 21:45 01/05/17 21:45 01/05/17 22:50 01/05/17 21:45 01/05/17 22:50 Internal Med - H&P Results - Labs CBC & Chem 7: 01/05/17 19:11 01/05/17 22:47 Labs: Short CBC 01/05/17 Range/Units 19:11 Hgb 13.1 (12.9-16.9) g/dL Hct 41.5 (37.5-50.1) % BMP 01/05/17 22:47 Sodium 135 L Potassium 5.8 H Chloride 103 Carbon Dioxide 20 BUN 72 H Creatinine 2.17 H Glucose 189 H Calcium 10.1 - Attending Attestation I examined this patient and my medical decision-making was reviewed with the HEALTH SPA MANAGER/ Advanced Practice Nurse. I agree with the documented findings, disposition and treatment plan as described except to the extent set forth below. 76-year-old man status post laparoscopic right nephrectomy for RCC, presents with gross hematuria with clots and dysuria. Denies fever, chills, cough, expectoration or cigarettes. He apparently was treated with antibiotics ( clindamycin) recently for suspected pneumonia. Chest x-ray during this presentation showed right basilar atelectasis/scarring. CT abdomen and pelvis showed interval development of widespread diffuse suspected hepatic metastasis and scattered bony metastasis. Hemorrhagic clot in the bladder. Patient was seen by urologist, the catheter was placed with bladder irrigation and once oncology consultation. O/E: Not in acute distress. No abdominal tenderness. Santos catheter draining bloody urine. A/P: Gross hematuria: Likely secondary to urinary tract infection versus urothelial malignancy. Urologist consulted. Monitor Hemoglobin and hematocrit and consider PRBC transfusion, if Hgb<8. Treat for UTI, with ceftriaxone. Treat hyperkalemia with kayexalate and sodium bicarbonate. Monitor potassium level and hold Lisinopril. Oncology consult for advice on suspected metastatic disease.
[2017-01-05 19:25] LABS: Hematocrit 41.5 % (37.5-50.1); Hemoglobin 13.1 g/dL (12.9-16.9)
[2017-01-05] MEDS ORDERED: 0.9 % Sodium Chloride 1,000 ML IVC SCH (20:00)
[2017-01-05] MEDS ORDERED: Albuterol 2.5 MG/3 ML NEBULIZER IH PRN (20:00)
[2017-01-05] MEDS: Lactobacillus 1 EACH CAP.SPRINK PO SCH (20:43)
[2017-01-05] MEDS: Gabapentin 300 MG CAPSULE PO SCH (20:44)
[2017-01-05] MEDS: Famotidine 20 MG TABLET PO SCH (20:44)
[2017-01-05] MEDS ORDERED: Ipratropium/Albuterol Neb 3 ML IH PRN (21:25)
[2017-01-05] MEDS: Ipratropium/Albuterol Neb 3 ML IH SCH (22:50)
[2017-01-05 23:07] LABS: Calcium 10.1 mg/dL (8.6-10.8); Potassium 5.8 mEq/L (3.5-4.5)
[2017-01-05] MEDS ORDERED: Calcium Gluconate 1,000 MG in D5% in Water 100 ML IVPB ONE (23:25)
[2017-01-06] MEDS: 0.9 % Sodium Chloride 1,000 ML IVC SCH ×2 (00:19→12:07)
[2017-01-06 01:19] LABS: Basophils % 0.2 %; Hematocrit 39.3 % (37.5-50.1); Hemoglobin 12.5 g/dL (12.9-16.9); Immature Granulocytes % 1.5 % (0-4); Immature Platelets 3.6 % (1.1-6.1); Lymphocytes # 0.5 K/mcL (0.6-4.6); Lymphocytes % 4.6 %; Mean Corpuscular HGB Conc 31.8 g/dL (31.6-35.5); Mean Corpuscular Hemoglobin 29.5 pg (28.0-33.3); Mean Corpuscular Volume 92.7 fL (83.0-100.0); Mean Platelet Volume 10.3 fL (9.4-12.4); Monocytes # 0.4 K/mcL (0.0-1.3); Monocytes % 4.1 %; Neutrophils # 9.6 K/mcL (1.6-8.9); Platelet Count 201 K/mcL (140-400); Red Blood Count 4.24 M/mcL (4.19-5.50); Red Cell Distribution Width 13.4 % (11.5-14.5); Segmented Neutrophils % 89.6 %
[2017-01-06 01:31] LABS: Calcium 10.8 mg/dL (8.6-10.8); Potassium 5.4 mEq/L (3.5-4.5)
[2017-01-06] MEDS: Ipratropium/Albuterol Neb 3 ML IH SCH ×4 (04:10→21:08)
--- NOTE | 2017-01-06 07:18 | Urology Progress Note ---
Date of Encounter: 01/06/17 Time of Encounter: 07:16 - Assessment and Plan (1) Gross hematuria Current Visit: No Status: Acute Assessment and plan: Hematuria after right nephrectomy. 1. Continue dennis for now. I will ask RN to hand irrigate catheter. If bleeding persists, may need to change out to [address] Dennis. 2. Appreciate IM support. 3. Dr. Henriquez aware of patient. Progress Note Narrative: Feels okay today. Urine was somewhat bloody overnight. Objective Initial Vital Signs Temp Pulse Resp BP Pulse Ox 97.7 F 77 16 125/78 98 01/05/17 11:57 01/05/17 11:57 01/05/17 11:57 01/05/17 11:57 01/05/17 11:57 - General physical appearance Present: well developed, well nourished, no distress - Respiratory Present: normal respiratory effort - Abdomen Present: soft - Genitourinary Present: normal penis with no external lesions Urine Appearance: Present: Hematuria (Catheter in place. Urine is slightly bloody.) - Labs 01/06/17 01:14 01/06/17 01:14 Diabetes panel 01/05/17 01/06/17 Range/Units 22:47 01:14 Sodium 135 L 136 (136-145) mEq/L Potassium 5.8 H 5.4 H (3.5-4.5) mEq/L Chloride 103 103 (98-109) mEq/L Carbon Dioxide 20 18 L (19-29) mEq/L BUN 72 H 71 H (8-26) mg/dL Creatinine 2.17 H 2.10 H (0.72-1.25) mg/dL Glucose 189 H 192 H (70-99) mg/dL Calcium 10.1 10.8 (8.6-10.8) mg/dL Calcium panel 01/05/17 01/06/17 Range/Units 22:47 01:14 Calcium 10.1 10.8 (8.6-10.8) mg/dL Pituitary panel 01/05/17 01/06/17 Range/Units 22:47 01:14 Sodium 135 L 136 (136-145) mEq/L Potassium 5.8 H 5.4 H (3.5-4.5) mEq/L Chloride 103 103 (98-109) mEq/L Carbon Dioxide 20 18 L (19-29) mEq/L BUN 72 H 71 H (8-26) mg/dL Creatinine 2.17 H 2.10 H (0.72-1.25) mg/dL Glucose 189 H 192 H (70-99) mg/dL Calcium 10.1 10.8 (8.6-10.8) mg/dL Adrenal panel 01/05/17 01/06/17 Range/Units 22:47 01:14 Sodium 135 L 136 (136-145) mEq/L Potassium 5.8 H 5.4 H (3.5-4.5) mEq/L Chloride 103 103 (98-109) mEq/L Carbon Dioxide 20 18 L (19-29) mEq/L BUN 72 H 71 H (8-26) mg/dL Creatinine 2.17 H 2.10 H (0.72-1.25) mg/dL Glucose 189 H 192 H (70-99) mg/dL Calcium 10.1 10.8 (8.6-10.8) mg/dL - VTE Reasons for not Prescribing Prophylaxis: Medical contraindication Consult Discharge Plan - Plan Referrals: NO,PCP [Primary Care Provider] -
[2017-01-06] MEDS ORDERED: Lisinopril 20 MG TABLET PO SCH (09:00)
[2017-01-06] MEDS ORDERED: Pantoprazole 40 MG VIAL IVP SCH (09:00)
[2017-01-06] MEDS: Gabapentin 300 MG CAPSULE PO SCH ×3 (09:13→22:07)
[2017-01-06] MEDS: Lactobacillus 1 EACH CAP.SPRINK PO SCH ×2 (09:13→22:07)
[2017-01-06] MEDS: predniSONE 20 MG TABLET PO SCH (09:14)
[2017-01-06] MEDS: traMADol 50 MG TABLET PO PRN ×2 (09:30→22:16)
[2017-01-06] MEDS ORDERED: Nicotine 21 MG PATCH.TD24 TD SCH (12:15)
--- NOTE | 2017-01-06 14:35 | Internal Med Progress Note ---
Date of Encounter: 01/06/17 Time of Encounter: 14:32 - Assessment and plan (1) VINCENT (acute kidney injury) Current Visit: Yes Status: Acute Assessment and plan: did undergo right nephrectomy last year. His creatinine was 1.8 today to 2.10. We will continue to monitor creatinine we will give IV fluids avoid nephrotoxins renal dose antibiotics (2) Hematuria Current Visit: Yes Status: Acute Assessment and plan: has been experiencing hematuria for the past 2 days he does have a history of renal cell carcinoma with right nephrectomy last year. CT of abdomen and pelvis does demonstrate metastasis to liver and bony metastases. Dennis placed. urology saw the patient and irrigated Dennis. Urology following the patient, will follow recommendations we will treat for UTI (3) Metastatic cancer Current Visit: Yes Status: Acute Assessment and plan: patient has a past history of right nephrectomy due to renal cell carcinoma. He has been experiencing dysuria as well as hematuria the past week. CT of abdomen and pelvis revealed possible liver metastases and bone metastases. oncology has been consulted, will follow recommendtaions (4) UTI (urinary tract infection) Current Visit: Yes Status: Acute Assessment and plan: the LE and nitrite was negative, he does have wbc in the urine but the cx is negative will stop the antibiotics today. no fever or lucocytosis. Qualifiers: Urinary tract infection type: site unspecified Hematuria presence: with hematuria Qualified Code(s): N39.0 - Urinary tract infection, site not specified; R31.9 - Hematuria, unspecified - Time Spent With Patient 25 - 35 minutes - Subjective Interval history: gokul seen at the bedside, admitted for hematuria, s/p nephrectomy and dennis placement c/o some discomfort from the dennis, as some buring and he says that the catheter is too big. he denies abdominal pain, n/v, fever at home - Constitutional Vitals: Temp Pulse Resp BP Pulse Ox 98.1 F 91 16 120/71 96 01/06/17 11:04 01/06/17 11:04 01/06/17 11:04 01/06/17 11:04 01/06/17 11:04 General appearance: Present: A&O X 3, answers questions appropriately Exam: - Head Head exam: Present: atraumatic, normocephalic - Respiratory Respiratory exam: Present: CTAB. Absent: accessory muscle use, rales, rhonchi, wheezes - Cardiovascular Cardiovascular exam: Present: RRR, +S1, +S2. Absent: diastolic murmur, gallop, rubs, systolic murmur - GI/Abdominal GI/Abdominal exam: Present: normal bowel sounds, soft, no peritoneal signs. Absent: distended, tenderness - Additional comments: Noted dark red urine in Dennis bag - Extremities Exam Extremities exam: Present: warm, radial pulses palpable and symetrical. Absent : calf tenderness, cyanotic, pedal edema - Neurological Exam Neurological exam: Present: CN II-XII intact, oriented X3, no focal deficits. Absent: pronater drift, facial droop, speech deficit - Skin Skin exam: Present: dry, intact Internal Medicine: Result - Labs CBC & Chem 7: 01/06/17 01:14 01/06/17 01:14 Labs: Short CBC 01/05/17 01/06/17 Range/Units 19:11 01:14 WBC 10.7 (4.3-11.1) K/mcL Hgb 13.1 12.5 L (12.9-16.9) g/dL Hct 41.5 39.3 (37.5-50.1) % Plt Count 201 (140-400) K/mcL Neutrophils # 9.6 H (1.6-8.9) K/mcL BMP 01/05/17 01/06/17 22:47 01:14 Sodium 135 L 136 Potassium 5.8 H 5.4 H Chloride 103 103 Carbon Dioxide 20 18 L BUN 72 H 71 H Creatinine 2.17 H 2.10 H Glucose 189 H 192 H Calcium 10.1 10.8 - VTE Reasons for not Prescribing Prophylaxis: Medical contraindication Consult Discharge Plan - Plan Referrals: NO,PCP [Primary Care Provider] -
--- NOTE | 2017-01-06 14:39 | Oncology Inp Consult Note ---
<Marium Jacques E - Last Filed: 01/06/17 16:45> Date of Encounter: 01/06/17 Time of Encounter: 15:30 Assessment and Plan (1) History of renal cell carcinoma Status: Acute (2) Metastatic cancer Status: Acute (3) Gross hematuria Status: Acute - Data of Consult Patient: new to practice Requesting Physician: Hansel Barroso MD Primary Care Provider: PCP NO - Consult Narrative Reason for consult: Hematuria, history of renal cell carcinoma History of present illness: Mr. Ngo is a 76 year old male minute to [facility] through the emergency room. At that time he presented with complaint of worsening pneumonia and blood in his urine. He states that he had had some midthoracic pain for several weeks. He states his pain has worsened. He also reports that he was having a bit of lower abdominal discomfort and just suddenly one morning after drinking coffee he urinated and at that time it was bright red blood. He was found to have worsening renal function, elevated liver function tests, mild lactic acidosis, and his CT of the abdomen and pelvis showed likely liver metastasis and bony metastasis and a question of a developing nodule in the left adrenal gland. A mild left hydronephrosis. There was also hemorrhagic clot noted within the bladder. He reports that he had a nephrectomy in August due to renal cell carcinoma but did not have other modalities of therapy. In reviewing his pathology report from 09/12/2016 indicates a right nephrectomy cell, clear cell, 6.5 cm and was multifocal, grade 3, and margins were positive with aPT3a, pNx, pM n/a. He continues to report having severe pain in the thoracic spine, he states the pain increases with movement and even with taking a deep breath. He states that he does not want to take analgesics for pain. Order CAT scan of the chest and LDH for further workup. Past Med Surg Social Fam HX - Past Medical History Medical history: arthritis, cancer (-Clear-cell), COPD, GERD, hyperlipidemia, hypertension, renal disease Psychiatric history: no psych history - Past Surgical History Surgical History: appendectomy, other - Social History Smoking Status: Current every day smoker Packs per day: 3 Smokeless Tobacco Status: No Alcohol use: none Drug use: none - Family History Mother Living Status: Cause of : Aneurysm Hx Family Cardiac Disorders: Yes Hx Family Respiratory Disorders: Yes (COPD) Hx Family Cancer: Yes (Lung) Hx Family GI Disorders: No Hx Family Genitourinary Disorders: No Hx Family Endocrine Disorder: No Hx Family Musculoskeletal Disorders: No Hx Family Neuromuscular Disorders: No Hx Family Neurologic Disorders: No Hx Family HEENT Disorders: No Hx Family Autoimmune Disorders: No Hx Family Reproductive Disorders: No Hx Family Medical Disorders: No Medications and Allergies Albuterol Sulfate [Proair Hfa] 2 puff IH Q4H PRN 04/21/16 [History] Famotidine [Pepcid] 20 mg PO BID 04/21/16 [History] Gabapentin [Neurontin] 600 mg PO TID 04/21/16 [History] Lisinopril [Zestril] 20 mg PO DAILY 04/21/16 [History] Nebivolol [Bystolic] 5 mg PO DAILY 04/21/16 [History] Simvastatin [Zocor] 40 mg PO HS 04/21/16 [History] TraMADol [Ultram] 50 mg PO TID PRN 04/21/16 [History] Tamsulosin HCl [Flomax] 0.4 mg PO DAILY #30 cap.er.24h 09/14/16 [Rx] Albuterol Neb [Proventil Neb] 2.5 mg IH Q4HR PRN 12/30/16 [History] Clindamycin HCl [Cleocin HCl] 150 mg PO QID #40 capsule 12/30/16 [Rx] D-Methorphan Hb/P-Epd HCl/Bpm [Bromfed Dm Cough Syrup] 10 ml PO Q6-8H PRN #240 ml 12/30/16 [Rx] PredniSONE 40 mg PO DAILY #10 tablet 12/30/16 [Rx] Acetaminophen [Tylenol] 650 mg PO BID PRN 01/05/17 [History] Allergies codeine Adverse Reaction (Verified 01/05/17 16:06) Vomiting Penicillins [PCN] Adverse Reaction (Verified 01/05/17 16:06) Vomiting All systems: reviewed and no additional remarkable complaints except as stated Constitutional: Present: fatigue, weakness (Left arm and leg that he been present since November) Cardiovascular: Present: leg edema Respiratory: Present: dyspnea on exertion, pain on inspiration (The right side in the mid thoracic spine), other (With the pain in his thoracic spine and rib area being so severe that it nearly takes his breath away) Musculoskeletal: Present: muscle weakness (Left arm and left leg) Oncology - Exam - Constitutional Vitals: Temp Pulse Resp BP Pulse Ox 97.3 F L 73 16 114/96 93 L 01/06/17 14:35 01/06/17 14:35 01/06/17 14:35 01/06/17 14:35 01/06/17 14:35 General appearance: cooperative, no acute distress - Head Head exam: Present: normocephalic - ENT ENT exam: Present: mucous membranes moist - Respiratory Respiratory exam: Present: CTAB Additional comments: Reports pain in the midthoracic spine area on deep inspiration. - Cardiovascular Cardiovascular exam: Present: RRR - GI/Abdominal GI/Abdominal exam: Present: normal bowel sounds, soft - Additional comments: Interim place with dark red urine - Neurological Exam Neurological exam: Present: alert, oriented X3 Additional comments: Motor strength in left upper and lower extremity decreased compared to right Oncology - Results - Labs Labs: Short CBC 01/05/17 01/06/17 Range/Units 19:11 01:14 WBC 10.7 (4.3-11.1) K/mcL Hgb 13.1 12.5 L (12.9-16.9) g/dL Hct 41.5 39.3 (37.5-50.1) % Plt Count 201 (140-400) K/mcL Neutrophils # 9.6 H (1.6-8.9) K/mcL BMP 01/05/17 01/06/17 22:47 01:14 Sodium 135 L 136 Potassium 5.8 H 5.4 H Chloride 103 103 Carbon Dioxide 20 18 L BUN 72 H 71 H Creatinine 2.17 H 2.10 H Glucose 189 H 192 H Calcium 10.1 10.8 Consult Discharge Plan - Plan Referrals: Aiden Swartz DO [Primary Care Provider] - <Hyun Watts S - Last Filed: 01/07/17 12:41> - Data of Consult Requesting Physician: Hansel Barroso MD Primary Care Provider: PCP NO - Consult Narrative History of present illness: Mr. Ngo is a 76 year old male Oncology - Exam - Constitutional Vitals: Temp Pulse Resp BP Pulse Ox 97.3 F L 73 18 114/96 94 L 01/06/17 14:35 01/06/17 14:35 01/06/17 16:05 01/06/17 14:35 01/06/17 16:05 Oncology - Results - Labs Labs: Short CBC 01/05/17 01/06/17 Range/Units 19:11 01:14 WBC 10.7 (4.3-11.1) K/mcL Hgb 13.1 12.5 L (12.9-16.9) g/dL Hct 41.5 39.3 (37.5-50.1) % Plt Count 201 (140-400) K/mcL Neutrophils # 9.6 H (1.6-8.9) K/mcL BMP 01/05/17 01/06/17 22:47 01:14 Sodium 135 L 136 Potassium 5.8 H 5.4 H Chloride 103 103 Carbon Dioxide 20 18 L BUN 72 H 71 H Creatinine 2.17 H 2.10 H Glucose 189 H 192 H Calcium 10.1 10.8 - Attending Attestation 1. Right renal cell carcinoma post nephrectomy on 09/12/2016. Tumor size 6.5 cm multifocal limited to kidney clear cell type. No sarcomatoid future. Kaelyn grade 3 No lymph node dissection. Renal vein margin positive CT abdomen August 2016 was negative for metastasis Presents with metastatic carcinoma likely renal cell carcinoma. CT of chest without contrast on 01/06/[address] of abdomen and pelvis without contrast 08/2017 showed right hilar mass with invasion to lungs, and mediastinal adenopathy. Also postobstructive pneumonia right lower lobe Diffuse liver metastasis Lytic bone lesions and subcutaneous nodules. Also left upper and lower activity weakness MRI brain without contrast 01/06/2017 negative for metastasis 2. Hematuria. Urology involved. Treatment recommendation once hematuria improves. Most likely to start with Pazopanib or sunitinib. 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 If necessary would do MRI of the spine. May consider radiation for palliation especially to the painful metastasis Bronchoscopy and biopsy of the right hilar mass should give the diagnosis
--- NOTE | 2017-01-06 15:33 | Electrocardiograph Report ---
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
[2017-01-06] MEDS: Nicotine 21 MG PATCH.TD24 TD SCH (22:07)
[2017-01-06] MEDS: Famotidine 20 MG TABLET PO SCH (22:07)
[2017-01-07] MEDS: Ipratropium/Albuterol Neb 3 ML IH SCH ×4 (03:56→21:08)
[2017-01-07] MEDS: 0.9 % Sodium Chloride 1,000 ML IVC SCH ×2 (04:01→20:33)
[2017-01-07 05:28] LABS: Basophils % 0.1 %; Eosinophils % 0.3 %; Hematocrit 37.6 % (37.5-50.1); Hemoglobin 11.5 g/dL (12.9-16.9); Immature Granulocytes % 1.2 % (0-4); Lymphocytes # 0.9 K/mcL (0.6-4.6); Lymphocytes % 6.8 %; Mean Corpuscular HGB Conc 30.6 g/dL (31.6-35.5); Mean Corpuscular Hemoglobin 28.9 pg (28.0-33.3); Mean Corpuscular Volume 94.5 fL (83.0-100.0); Mean Platelet Volume 10.6 fL (9.4-12.4); Monocytes # 1.5 K/mcL (0.0-1.3); Platelet Count 205 K/mcL (140-400); Red Blood Count 3.98 M/mcL (4.19-5.50); Red Cell Distribution Width 13.7 % (11.5-14.5); Segmented Neutrophils % 80.6 %
[2017-01-07 05:43] LABS: Potassium 4.2 mEq/L (3.5-4.5)
[2017-01-07 05:44] LABS: Calcium 9.1 mg/dL (8.6-10.8)
[2017-01-07] MEDS: traMADol 50 MG TABLET PO PRN ×2 (08:36→20:37)
[2017-01-07] MEDS: predniSONE 20 MG TABLET PO SCH (08:37)
[2017-01-07] MEDS: Lactobacillus 1 EACH CAP.SPRINK PO SCH ×2 (08:37→20:33)
[2017-01-07] MEDS: Nicotine 21 MG PATCH.TD24 TD SCH (08:38)
[2017-01-07] MEDS: Gabapentin 300 MG CAPSULE PO SCH ×3 (08:46→20:33)
[2017-01-07] MEDS ORDERED: Piperacillin/Tazobactam 2.25 GM in D5% in Water (Mini-Bag+) 100 ML IVPB SCH (09:29)
[2017-01-07] MEDS ORDERED: Levofloxacin 500 MG/100 ML 500 MG/100 ML BAG IVPB SCH (10:00)
[2017-01-07] MEDS ORDERED: DEXTROMETHORPHAN PO PRN (11:06)
[2017-01-07] MEDS ORDERED: PSEUDOEPHEDRINE PO PRN (11:06)
[2017-01-07] MEDS ORDERED: BROMPHENIRAMINE PO PRN (11:06)
[2017-01-07] MEDS: BROMPHENIRAMINE PO PRN (11:44)
[2017-01-07] MEDS: PSEUDOEPHEDRINE PO PRN (11:44)
[2017-01-07] MEDS: DEXTROMETHORPHAN PO PRN (11:44)
--- NOTE | 2017-01-07 13:03 | Urology Progress Note ---
Date of Encounter: 01/07/17 Time of Encounter: 13:00 - Assessment and Plan (1) Hematuria Current Visit: Yes Status: Acute Assessment and plan: will plan on taking patient to OR for cysto/clot evac/ left ureteroscopy will remove cath today. Patient understands that he may have to have one replaced. (2) Metastatic cancer Current Visit: Yes Status: Acute Progress Note Narrative: patient doing well. patient wants cath out. still with some hematuria. Objective Initial Vital Signs Temp Pulse Resp BP Pulse Ox 97.7 F 77 16 125/78 98 01/05/17 11:57 01/05/17 11:57 01/05/17 11:57 01/05/17 11:57 01/05/17 11:57 - General physical appearance Present: well developed - Abdomen Present: soft - Genitourinary Present: other (urine in tubing) - Labs 01/07/17 04:22 01/07/17 04:22 Diabetes panel 01/07/17 Range/Units 04:22 Sodium 139 (136-145) mEq/L Potassium 4.2 D (3.5-4.5) mEq/L Chloride 102 (98-109) mEq/L Carbon Dioxide 20 (19-29) mEq/L BUN 76 H (8-26) mg/dL Creatinine 2.04 H (0.72-1.25) mg/dL Glucose 115 H (70-99) mg/dL Calcium 9.1 D (8.6-10.8) mg/dL Calcium panel 01/07/17 Range/Units 04:22 Calcium 9.1 D (8.6-10.8) mg/dL Pituitary panel 01/07/17 Range/Units 04:22 Sodium 139 (136-145) mEq/L Potassium 4.2 D (3.5-4.5) mEq/L Chloride 102 (98-109) mEq/L Carbon Dioxide 20 (19-29) mEq/L BUN 76 H (8-26) mg/dL Creatinine 2.04 H (0.72-1.25) mg/dL Glucose 115 H (70-99) mg/dL Calcium 9.1 D (8.6-10.8) mg/dL Adrenal panel 01/07/17 Range/Units 04:22 Sodium 139 (136-145) mEq/L Potassium 4.2 D (3.5-4.5) mEq/L Chloride 102 (98-109) mEq/L Carbon Dioxide 20 (19-29) mEq/L BUN 76 H (8-26) mg/dL Creatinine 2.04 H (0.72-1.25) mg/dL Glucose 115 H (70-99) mg/dL Calcium 9.1 D (8.6-10.8) mg/dL - VTE Reasons for not Prescribing Prophylaxis: Medical contraindication Documentation of Mechanical Device: Graduated compression elastic hosiery Consult Discharge Plan - Plan Referrals: Aiden Swartz DO [Primary Care Provider] -
[2017-01-07] MEDS: Piperacillin/Tazobactam 3.375 GM in D5% in Water (Mini-Bag+) 100 ML IVPB SCH ×2 (13:55→20:32)
--- NOTE | 2017-01-07 16:05 | Internal Med Progress Note ---
Date of Encounter: 01/07/17 Time of Encounter: 16:02 - Assessment and plan (1) VINCENT (acute kidney injury) Current Visit: Yes Status: Acute Assessment and plan: did undergo right nephrectomy last year. His creatinine today is 2.04. We will continue to monitor creatinine we will give IV fluid.s avoid nephrotoxins renal dose antibiotics (2) Hematuria Current Visit: Yes Status: Acute Assessment and plan: has been experiencing hematuria for the past 2 days he does have a history of renal cell carcinoma with right nephrectomy last year. CT of abdomen and pelvis does demonstrate metastasis to liver and bony metastases. Dennis placed. urology folllowing, plan to remove the dennis and for OR on . (3) Metastatic cancer Current Visit: Yes Status: Acute Assessment and plan: patient has a past history of right nephrectomy due to renal cell carcinoma. He has been experiencing dysuria as well as hematuria the past week. CT of abdomen and pelvis revealed possible liver metastases and bone metastases. oncology has been consulted, CT of chest without contrast on 01/06/[address] of abdomen and pelvis without contrast 01/04/2017 showed right hilar mass with invasion to lungs, and mediastinal adenopathy. Also postobstructive pneumonia right lower lobe Diffuse liver metastasis Lytic bone lesions and subcutaneous nodules. MRI brain without contrast 01/06/2017 negative for metastasis as per oncology : Most likely to start with Pazopanib or sunitinib. 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 If necessary would do MRI of the spine. May consider radiation for palliation especially to the painful metastasis Bronchoscopy and biopsy of the right hilar mass should give the diagnosis, which will proceed after the hematuria resolves. (4) UTI (urinary tract infection) Current Visit: Yes Status: Acute Assessment and plan: the LE and nitrite was negative, he does have wbc in the urine but the cx is negative will not treat for UTI at this time Qualifiers: Urinary tract infection type: site unspecified Hematuria presence: with hematuria Qualified Code(s): N39.0 - Urinary tract infection, site not specified; R31.9 - Hematuria, unspecified (5) Pneumonia Current Visit: Yes Status: Acute Assessment and plan: postobstructive pneumonia right lower lobe from the right hilar mass. c/o cough with productive phlegm , no hemoptysis at this time. will treat with zosyn and levoflox and de- escalate as per sputum results. Qualifiers: Aspiration pneumonia type: unspecified Laterality: right Lung location: lower lobe of lung Qualified Code(s): J69.0 - Pneumonitis due to inhalation of food and vomit - Time Spent With Patient 25 - 35 minutes - Subjective Interval history: patiagata seen at the bedside, admitted for hematuria, s/p nephrectomy and dennis placement he denies abdominal pain, n/v, fever at home, reports some relief to the urinary discomfort, still has hematuria. urology follwoing. - Constitutional Vitals: Temp Pulse Resp BP Pulse Ox 98.5 F 82 18 133/76 95 01/07/17 11:52 01/07/17 11:52 01/07/17 11:52 01/07/17 11:52 01/07/17 11:52 General appearance: Present: A&O X 3, answers questions appropriately Exam: - Head Head exam: Present: atraumatic, normocephalic - Respiratory Respiratory exam: Present: CTAB. Absent: accessory muscle use, rales, rhonchi, wheezes - Cardiovascular Cardiovascular exam: Present: RRR, +S1, +S2. Absent: diastolic murmur, gallop, rubs, systolic murmur - GI/Abdominal GI/Abdominal exam: Present: normal bowel sounds, soft, no peritoneal signs. Absent: distended, tenderness - Additional comments: Noted dark red urine in Dennis bag - Extremities Exam Extremities exam: Present: warm, radial pulses palpable and symetrical. Absent : calf tenderness, cyanotic, pedal edema - Neurological Exam Neurological exam: Present: CN II-XII intact, oriented X3, no focal deficits. Absent: pronater drift, facial droop, speech deficit - Skin Skin exam: Present: dry, intact Internal Medicine: Result - Labs CBC & Chem 7: 01/07/17 04:22 01/07/17 04:22 - VTE Reasons for not Prescribing Prophylaxis: Medical contraindication Documentation of Mechanical Device: Graduated compression elastic hosiery Consult Discharge Plan - Plan Referrals: Aiden Swartz DO [Primary Care Provider] -
--- NOTE | 2017-01-07 16:41 | Oncology Inp Progress Note ---
<Marium Jacques Jamie - Last Filed: 01/07/17 16:38> Date of Encounter: 01/07/17 Time of Encounter: 15:30 (1) History of renal cell carcinoma Current Visit: Yes Status: Acute (2) Metastatic cancer Current Visit: Yes Status: Acute (3) Gross hematuria Current Visit: No Status: Acute Oncology: Subj Interval history: Patient denies change in his condition. He continues to have hematuria. He is pleased that his catheter is going to be removed later this afternoon however he does understand if he is unable to void will be reinserted. He states that he is going to have a cystoscopy on . He continues to have pain in the posterior mid thoracic area. But he states that the pain medication he is currently receiving does help alleviate that pain. He is very concerned about her thoughts of his cancer spreading. We did discuss that we are going to request pulmonary consult for a bronchoscopy secondary to right hilar mass. He stated no matter what was found he wanted to do what he could decide to disease that he was not a quick letter and do everything possible to beat this cancer. The patient was seen and examined at the bedside. Urology notes reviewed. - Constitutional General appearance: cooperative, no acute distress - Respiratory Respiratory exam: Present: decreased breath sounds, CTAB - Cardiovascular Cardiovascular exam: Present: RRR - GI/Abdominal GI/Abdominal exam: Present: distended, soft - Additional comments: Santos in place with dark red urine with small clots - Extremities Exam Extremities exam: Present: normal inspection - Back Exam Back exam: Present: vertebral tenderness (6 pine) - Psychiatric Psychiatric exam: Present: normal affect, normal mood Oncology: Obj Data - Labs CBC & Chem 7: 01/07/17 04:22 01/07/17 04:22 - Impressions CT scan of the chest on 01/05/2017 indicated there was confirmation of the inferior medial right juxta hilar mass with hilar invasion and adenopathy. Also resultant invasion and/or postobstructive pneumonia in the right lower lobe. Consult Discharge Plan - Plan Referrals: Aiden Swartz DO [Primary Care Provider] - 01/17/17 11:00 am <Hyun Watts - Last Filed: 01/08/17 08:38> - Constitutional Vitals: Vital Signs Temp Pulse Resp BP Pulse Ox 01/08/17 08:23 97.9 F 82 18 135/78 94 L 01/08/17 05:05 98.2 F 75 16 124/73 94 L 01/08/17 00:35 99.2 F 79 16 121/69 94 L 01/07/17 21:10 16 96 01/07/17 20:13 98.0 F 68 16 125/72 96 01/07/17 16:47 18 96 01/07/17 15:00 98.5 F 77 16 136/66 98 Intake and Output 01/07/17 01/08/17 01/08/17 23:59 07:59 15:59 Intake Total 1340 / 1340 737 / 737 0 / 0 Output Total 150 / 150 500 / 500 50 / 50 Balance 1190 / 1190 237 / 237 -50 / -50 Intake: IV Fluids 1100 / 1100 537 / 537 0.9 % Sodium Chloride 1, 1000 / 1000 437 / 437 000 ML @ 100 mls/hr IVC . Q10H GUALBERTO Rx#:[id number] Zosyn 3.375 GM In 100 / 100 100 / 100 Dextrose 5% (Minibag+) 100 ML 100 ML @ 25 mls/hr IVPB Q8H GUALBERTO Rx#: [id number] Oral 240 / 240 200 / 200 0 / 0 Output: Urine 150 / 150 200 / 200 50 / 50 Urine/Stool Mix 300 / 300 Other: Percent of Meal Consumed 75% # Voids 1 Weight 88.989 kg Patient Weight 01/08/17 23:59 Weight 88.989 kg Oncology: Obj Data - Labs CBC & Chem 7: 01/07/17 04:22 01/07/17 04:22 - Attending Attestation I examined this patient and my medical decision-making was reviewed with the Advanced Practice Nurse. I agree with the documented findings, disposition and treatment plan as described except to the extent set forth below. 1. Metastatic carcinoma with multiple liver metastasis, right hilar mass. Proceed with bronchoscopy and biopsy of the right hilar mass for diagnosis LDH elevated at 719 on 01/06/2017 which is twice is normal 2. Apparently he had a fall. He has limitation use of left upper and lower extremity area also some tenderness over the left upper arm. We will proceed with x-ray of the left shoulder 3. MRI brain without contrast negative for metastasis 4. Hematuria. Cystoscopy planned for 01/09/2017
[2017-01-07] MEDS: Famotidine 20 MG TABLET PO SCH (20:33)
[2017-01-08] MEDS: Ipratropium/Albuterol Neb 3 ML IH SCH ×4 (04:07→22:51)
[2017-01-08] MEDS: traMADol 50 MG TABLET PO PRN (04:45)
[2017-01-08] MEDS: Piperacillin/Tazobactam 3.375 GM in D5% in Water (Mini-Bag+) 100 ML IVPB SCH ×2 (04:46→12:48)
--- NOTE | 2017-01-08 06:50 | Urology Progress Note ---
Date of Encounter: 01/08/17 Time of Encounter: 06:48 - Assessment and Plan (1) Hematuria Current Visit: Yes Status: Acute Assessment and plan: Catheter removed yesterday. Patient is voiding overnight but does have lower urinary output -creatinine stable. Dr. Henriquez is planning on proceeding with cystoscopy, clot evacuation and fulguration tomorrow. No need to replace catheter at this time Progress Note Subjective: no new complaints Narrative: states able to urinate without straining. states "arnold" no clots. still gross hematuria. Objective Initial Vital Signs Temp Pulse Resp BP Pulse Ox 97.7 F 77 16 125/78 98 01/05/17 11:57 01/05/17 11:57 01/05/17 11:57 01/05/17 11:57 01/05/17 11:57 - General physical appearance Present: well developed, no distress - Additional Exam urine in urinal darker maroon but transparent. no clots. - Labs 01/07/17 04:22 01/07/17 04:22 - VTE Reasons for not Prescribing Prophylaxis: Medical contraindication Documentation of Mechanical Device: Graduated compression elastic hosiery Consult Discharge Plan - Plan Referrals: Aiden Swartz DO [Primary Care Provider] - 01/17/17 11:00 am
[2017-01-08] MEDS ORDERED: Levofloxacin 750 MG/150 ML 750 MG/150 ML BAG IVPB SCH (09:00)
[2017-01-08] MEDS: 0.9 % Sodium Chloride 1,000 ML IVC SCH ×4 (09:06→20:38)
[2017-01-08] MEDS: PSEUDOEPHEDRINE PO PRN (09:11)
[2017-01-08] MEDS: DEXTROMETHORPHAN PO PRN (09:11)
[2017-01-08] MEDS: BROMPHENIRAMINE PO PRN (09:11)
[2017-01-08] MEDS: Gabapentin 300 MG CAPSULE PO SCH ×3 (09:12→20:38)
[2017-01-08] MEDS: Lactobacillus 1 EACH CAP.SPRINK PO SCH ×2 (09:12→20:44)
[2017-01-08] MEDS: Nicotine 21 MG PATCH.TD24 TD SCH (09:13)
[2017-01-08] MEDS: predniSONE 20 MG TABLET PO SCH (09:13)
[2017-01-08 09:19] LABS: Basophils % 0.2 %; Eosinophils # 0.2 K/mcL (0.0-0.6); Eosinophils % 1.3 %; Hematocrit 38.6 % (37.5-50.1); Hemoglobin 11.7 g/dL (12.9-16.9); Immature Granulocytes % 1.5 % (0-4); Lymphocytes # 0.8 K/mcL (0.6-4.6); Lymphocytes % 6.4 %; Mean Corpuscular HGB Conc 30.3 g/dL (31.6-35.5); Mean Corpuscular Hemoglobin 28.9 pg (28.0-33.3); Mean Corpuscular Volume 95.3 fL (83.0-100.0); Mean Platelet Volume 10.5 fL (9.4-12.4); Monocytes # 1.3 K/mcL (0.0-1.3); Monocytes % 10.4 %; Neutrophils # 9.6 K/mcL (1.6-8.9); Platelet Count 182 K/mcL (140-400); Red Blood Count 4.05 M/mcL (4.19-5.50); Red Cell Distribution Width 13.6 % (11.5-14.5); Segmented Neutrophils % 80.2 %
[2017-01-08 09:32] LABS: Calcium 8.7 mg/dL (8.6-10.8); Potassium 4.6 mEq/L (3.5-4.5)
[2017-01-08] MEDS: Acetaminophen 325 MG TABLET PO PRN ×2 (12:49→23:18)
--- NOTE | 2017-01-08 13:38 | Pulmonology Consult Note ---
Date of Encounter: 01/08/17 Time of Encounter: 13:33 Assessment and Plan (1) Abnormal CT scan, chest Current Visit: Yes Status: Acute (2) Lung mass Current Visit: Yes Status: Acute (3) Mediastinal adenopathy Current Visit: Yes Status: Acute (4) COPD with acute exacerbation Current Visit: Yes Status: Acute History of Present Illness Consult date: 01/08/17 Requesting physician: Hyun Watts Reason for consult: abnormal CXR/CT Chief complaint: Abnormal CT scan of the chest History of present illness: 76-year-old white male with a medical history significant for COPD and clear cell carcinoma who presented to the hospital with hematuria. Evaluation has revealed abnormal chest imaging with signs of metastatic disease and pneumonia. Pulmonary consult for further evaluation and management. In speaking with the patient, he reports approximately 1 week of dyspnea on exertion. The dyspnea was associated with a cough. He did get some improvement when he received steroids and antibiotics prior to this hospital admission. He states that he is not currently producing purulent sputum. He denies any hemoptysis. He denies exertional chest discomfort, diaphoresis, or nausea/vomiting. No current fevers or chills. Past Med Surg Social Fam HX - Past Medical History Medical history: arthritis, cancer (-Clear-cell), COPD, GERD, hyperlipidemia, hypertension, renal disease Psychiatric history: no psych history - Past Surgical History Surgical History: appendectomy, other - Social History Smoking Status: Current every day smoker Packs per day: 3 Smokeless Tobacco Status: No Alcohol use: none Drug use: none - Family History Mother Living Status: Cause of : Aneurysm Hx Family Cardiac Disorders: Yes Hx Family Respiratory Disorders: Yes (COPD) Hx Family Cancer: Yes (Lung) Hx Family GI Disorders: No Hx Family Genitourinary Disorders: No Hx Family Endocrine Disorder: No Hx Family Musculoskeletal Disorders: No Hx Family Neuromuscular Disorders: No Hx Family Neurologic Disorders: No Hx Family HEENT Disorders: No Hx Family Autoimmune Disorders: No Hx Family Reproductive Disorders: No Hx Family Medical Disorders: No Medications and Allergies Albuterol Sulfate [Proair Hfa] 2 puff IH Q4H PRN 04/21/16 [History] Famotidine [Pepcid] 20 mg PO BID 04/21/16 [History] Gabapentin [Neurontin] 600 mg PO TID 06/26/16 [History] Lisinopril [Zestril] 20 mg PO DAILY 04/21/16 [History] Nebivolol [Bystolic] 5 mg PO DAILY 04/21/16 [History] Simvastatin [Zocor] 40 mg PO HS 04/21/16 [History] TraMADol [Ultram] 50 mg PO TID PRN 04/21/16 [History] Tamsulosin HCl [Flomax] 0.4 mg PO DAILY #30 cap.er.24h 09/14/16 [Rx] Albuterol Neb [Proventil Neb] 2.5 mg IH Q4HR PRN 12/30/16 [History] Clindamycin HCl [Cleocin HCl] 150 mg PO QID #40 capsule 12/30/16 [Rx] D-Methorphan Hb/P-Epd HCl/Bpm [Bromfed Dm Cough Syrup] 10 ml PO Q6-8H PRN #240 ml 12/30/16 [Rx] PredniSONE 40 mg PO DAILY #10 tablet 12/30/16 [Rx] Acetaminophen [Tylenol] 650 mg PO BID PRN 01/05/17 [History] Allergies codeine Adverse Reaction (Verified 01/05/17 16:06) Vomiting Penicillins [PCN] Adverse Reaction (Verified 01/05/17 16:06) Vomiting All Systems: A 10-system review of systems was performed and is negative for pertinent findings except as documented above in the HPI. Physical Examination Vital Signs: Vital Signs, Last 4 Hours Temp Pulse Resp BP Pulse Ox 01/08/17 11:45 97.5 F L 72 18 127/76 94 L 01/08/17 10:38 18 99 General: Chronically ill-appearing male who is in no acute distress Eyes: nonicteric ENT: oropharynx moist Neck: supple, no lymphadenopathy Lungs: Clear to auscultation bilaterally Cardiovascular: regular rate and rhythm Gastrointestinal: normoactive bowel sounds, soft, non-tender, non-distended Integumentary: normal Extremities: no cyanosis, no edema Musculoskeletal: no deformities Neuro: normal mental status, non-focal exam Psych: mood appropriate, affect normal Results - Laboratory Findings CBC and BMP: 01/08/17 08:55 01/08/17 08:55 Abnormal lab findings: Abnormal lab results WBC 12.0 K/mcL (4.3-11.1) H 01/08/17 08:55 RBC 4.05 M/mcL (4.19-5.50) L 01/08/17 08:55 Hgb 11.7 g/dL (12.9-16.9) L 01/08/17 08:55 MCHC 30.3 g/dL (31.6-35.5) L 01/08/17 08:55 Neutrophils # 9.6 K/mcL (1.6-8.9) H 01/08/17 08:55 Potassium 4.6 mEq/L (3.5-4.5) H 01/08/17 08:55 BUN 72 mg/dL (8-26) H 01/08/17 08:55 Creatinine 1.86 mg/dL (0.72-1.25) H 01/08/17 08:55 Est GFR ( Amer) 43 (> 60) L 01/08/17 08:55 Est GFR (Non-Af Amer) 36 (> 60) L 01/08/17 08:55 BUN/Creatinine Ratio 39 (6-26) H 01/08/17 08:55 Glucose 128 mg/dL (70-99) H 01/08/17 08:55 POC Glucose 124 (58-89) H 01/05/17 14:34 Calculated Osmolality 307 (280-300) H 01/08/17 08:55 AST 36 Units/L (5-34) H 01/05/17 13:21 ALT 59 Units/L (0-55) H 01/05/17 13:21 Alkaline Phosphatase 262 Units/L (38-126) H 01/05/17 13:21 Lactate Dehydrogenase 719 Units/L (159-327) H 01/06/17 14:52 Albumin 2.7 g/dL (3.5-5.0) L 01/05/17 13:21 Globulin 4.9 g/dL (2.4-3.5) H 01/05/17 13:21 Albumin/Globulin Ratio 0.6 (1.1-2.2) L 01/05/17 13:21 Ur Specimen Adequacy See below A 01/05/17 12:30 Urine Color Red (Yellow) A 01/05/17 12:30 Urine Clarity Turbid (Clear) A 01/05/17 12:30 Urine Protein >=300 mg/dL (Neg-Trace) H 01/05/17 12:30 Urine Blood Large (Negative) H 01/05/17 12:30 Urine Microscopic RBC TNTC per hpf (0-3) H 01/05/17 12:30 Urine Microscopic WBC 15-30 per hpf (0-3) H 01/05/17 12:30 Urine Bacteria Many per hpf (None-Few) H 01/05/17 12:30 Granular Casts Few per lpf (None Seen) H 01/05/17 12:30 Ur Culture Indicated? YES (NO) A 01/05/17 12:30 - Clinical Findings Intake & Output: Intake & Output 01/07/17 01/08/17 01/08/17 23:59 07:59 15:59 Intake Total 1340 / 1340 737 / 737 1063 / 1063 Output Total 150 / 150 500 / 500 400 / 400 Balance 1190 / 1190 237 / 237 663 / 663 Weight 88.989 kg Consult Discharge Plan - Plan Referrals: Aiden Swartz DO [Primary Care Provider] - 01/17/17 11:00 am
--- NOTE | 2017-01-08 15:59 | Internal Med Progress Note ---
Date of Encounter: 01/08/17 Time of Encounter: 15:57 - Assessment and plan (1) VINCENT (acute kidney injury) Current Visit: Yes Status: Acute Assessment and plan: did undergo right nephrectomy last year. His creatinine has improved today. We will continue to monitor creatinine, avoid nephrotoxins renal dose antibiotics (2) Hematuria Current Visit: Yes Status: Acute Assessment and plan: has been experiencing hematuria for the past 2 days he does have a history of renal cell carcinoma with right nephrectomy last year. CT of abdomen and pelvis does demonstrate metastasis to liver and bony metastases. s/p removal of dennis yesterday, hematuria is persistent. urology folllowing, plan for cystoscopy tomm (3) Metastatic cancer Current Visit: Yes Status: Acute Assessment and plan: patient has a past history of right nephrectomy due to renal cell carcinoma. He has been experiencing dysuria as well as hematuria the past week. CT of abdomen and pelvis revealed possible liver metastases and bone metastases. oncology has been consulted, CT of chest without contrast on 01/06/[address] of abdomen and pelvis without contrast 01/04/2017 showed right hilar mass with invasion to lungs, and mediastinal adenopathy. Also postobstructive pneumonia right lower lobe Diffuse liver metastasis Lytic bone lesions and subcutaneous nodules. MRI brain without contrast 01/06/2017 negative for metastasis as per oncology : Most likely to start with Pazopanib or sunitinib. We will also make sure he does not have any SHRIMP PICKER metastasis. If necessary would do MRI of the spine. May consider radiation for palliation especially to the painful metastasis Bronchoscopy and biopsy of the right hilar mass should give the diagnosis, pulm has been consulted, possible tomm , to be coordinated with cystoscopy. (4) UTI (urinary tract infection) Current Visit: Yes Status: Acute Assessment and plan: the LE and nitrite was negative, he does have wbc in the urine but the cx is negative will not treat for UTI at this time Qualifiers: Urinary tract infection type: site unspecified Hematuria presence: with hematuria Qualified Code(s): N39.0 - Urinary tract infection, site not specified; R31.9 - Hematuria, unspecified (5) Pneumonia Current Visit: Yes Status: Acute Assessment and plan: postobstructive pneumonia right lower lobe from the right hilar mass. c/o cough with productive phlegm , no hemoptysis at this time. antibiotics de escalated to levoflox by pulm, plan for bronch and biopsy possible tomm Qualifiers: Aspiration pneumonia type: unspecified Laterality: right Lung location: lower lobe of lung Qualified Code(s): J69.0 - Pneumonitis due to inhalation of food and vomit - Time Spent With Patient 25 - 35 minutes - Subjective Interval history: patinet seen at the bedside, admitted for hematuria, s/p nephrectomy . shaquille any complains today, had the dennis taken out yest, no problems passing urine, still has hematuria. urology planning for cystoscopy tomm, also consulted pulm, for possible bronchoscopy with biopsy. - Constitutional Vitals: Temp Pulse Resp BP Pulse Ox 97.5 F L 72 18 127/76 94 L 01/08/17 11:45 01/08/17 11:45 01/08/17 11:45 01/08/17 11:45 01/08/17 11:45 General appearance: Present: A&O X 3, answers questions appropriately Exam: - Head Head exam: Present: atraumatic, normocephalic - Respiratory Respiratory exam: Present: CTAB. Absent: accessory muscle use, rales, rhonchi, wheezes - Cardiovascular Cardiovascular exam: Present: RRR, +S1, +S2. Absent: diastolic murmur, gallop, rubs, systolic murmur - GI/Abdominal GI/Abdominal exam: Present: normal bowel sounds, soft, no peritoneal signs. Absent: distended, tenderness - - has hematuria. - Extremities Exam Extremities exam: Present: warm, radial pulses palpable and symetrical. Absent : calf tenderness, cyanotic, pedal edema - Neurological Exam Neurological exam: Present: CN II-XII intact, oriented X3, no focal deficits. Absent: pronater drift, facial droop, speech deficit - Skin Skin exam: Present: dry, intact Internal Medicine: Result - Labs CBC & Chem 7: 01/08/17 08:55 01/08/17 08:55 Labs: Short CBC 01/08/17 Range/Units 08:55 WBC 12.0 H (4.3-11.1) K/mcL Hgb 11.7 L (12.9-16.9) g/dL Hct 38.6 (37.5-50.1) % Plt Count 182 (140-400) K/mcL Neutrophils # 9.6 H (1.6-8.9) K/mcL BMP 01/08/17 08:55 Sodium 137 Potassium 4.6 H Chloride 104 Carbon Dioxide 19 BUN 72 H Creatinine 1.86 H Glucose 128 H Calcium 8.7 - Impressions Impressions Shoulder X-Ray 01/08/17 09:01 IMPRESSION: 1. Mildly displaced fracture involving the left 2nd rib and suspected nondisplaced fracture of the left 3rd rib. 2. No acute fracture or dislocation of the left shoulder. 3. 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 D/ / 01/08/2017 15:18:44 Juan Carter MD / berna Interpreting Provider: Juan Carter MD - VTE Reasons for not Prescribing Prophylaxis: Medical contraindication Documentation of Mechanical Device: Graduated compression elastic hosiery Consult Discharge Plan - Plan Referrals: Aiden Swartz DO [Primary Care Provider] - 01/17/17 11:00 am
--- NOTE | 2017-01-08 18:21 | Anesthesia Evaluation PreOp ---
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: Denies Any Significant HX Other Medical History: Renal (CKD, s/p Rt Nephrectomy for renal cell ca 4 months ago), Other (Patient has possible metastases to lungs and bones Pulmonology consulted for Bronch, Oncology following) Anesthesia History: No Prior Anesthetic Complications Alcohol Use: none Drug use: none Medications and Allergies Albuterol Sulfate [Proair Hfa] 2 puff IH Q4H PRN 04/21/16 [History] Famotidine [Pepcid] 20 mg PO BID 04/21/16 [History] Gabapentin [Neurontin] 600 mg PO TID 04/21/16 [History] Lisinopril [Zestril] 20 mg PO DAILY 04/21/16 [History] Nebivolol [Bystolic] 5 mg PO DAILY 04/21/16 [History] Simvastatin [Zocor] 40 mg PO HS 04/21/16 [History] TraMADol [Ultram] 50 mg PO TID PRN 04/21/16 [History] Tamsulosin HCl [Flomax] 0.4 mg PO DAILY #30 cap.er.24h 09/14/16 [Rx] Albuterol Neb [Proventil Neb] 2.5 mg IH Q4HR PRN 12/30/16 [History] Clindamycin HCl [Cleocin HCl] 150 mg PO QID #40 capsule 12/30/16 [Rx] D-Methorphan Hb/P-Epd HCl/Bpm [Bromfed Dm Cough Syrup] 10 ml PO Q6-8H PRN #240 ml 12/30/16 [Rx] PredniSONE 40 mg PO DAILY #10 tablet 12/30/16 [Rx] Acetaminophen [Tylenol] 650 mg PO BID PRN 01/05/17 [History] Allergies codeine Adverse Reaction (Verified 01/05/17 16:06) Vomiting Penicillins [PCN] Adverse Reaction (Verified 01/05/17 16:06) Vomiting - Meds/Allergy Pre-op Review Medications Reviewed: Yes Allergies Reviewed: Yes Beta Blockers on Current Med List: Yes Anesthesia Results - Labs 01/08/17 08:55 01/08/17 08:55 - Imaging EKG: report reviewed (SR Borderline Left [place] Deviation) Anesthesia Exam O2 Sat Weight 88.989 kg O2 Sat by Pulse Oximetry 98 O2 Sat by Pulse Oximetry 94 O2 Sat by Pulse Oximetry 99 O2 Sat by Pulse Oximetry 94 O2 Sat by Pulse Oximetry 94 O2 Sat by Pulse Oximetry 94 O2 Sat by Pulse Oximetry 96 O2 Sat by Pulse Oximetry 96 Vital Signs Temp Pulse Resp BP Pulse Ox 97.7 F 77 16 125/78 98 01/05/17 11:57 01/05/17 11:57 01/05/17 11:57 01/05/17 11:57 01/05/17 11:57 Height: 6'0 Weight: 196 lbs NPO (# of Hours): MN Pain Scale: 0 - HEENT Pupil (Motor): Pupils equal, EOMI Mallampati: III Teeth: Edentulous Oral Opening: Greater than 3 - EGG PASTEURIZER LOC: Oriented EGG PASTEURIZER Motor: Normal RUE, Normal LUE, Normal RLE, Normal LLE, Normal Face EGG PASTEURIZER Sensory: Normal: RUE, LUE, RLE, LLE, Face - Cardiac Rhythm: Regular Murmur: None JVD: No Carotid Bruit: No - Pulmonary Breath Sounds: bilateral Clear Respiratory Effort: Symmetrical Anesthesia Assess/Plan ASA Score: 3 (COPD CKD HTN) Modified Clune Scale for Level of Consciousness: Cooperative, oriented, and tranquil Anesthetic Plan: General Monitoring Plan: Standard Monitors Recovery Plan: PACU (Discussed GA, agrees to proceed)
[2017-01-08] MEDS: Famotidine 20 MG TABLET PO SCH (20:38)
[2017-01-09] MEDS: Ipratropium/Albuterol Neb 3 ML IH SCH ×5 (04:40→21:17)
[2017-01-09] MEDS ORDERED: *HR* Midazolam HCl 5 MG/5 ML VIAL IVP ONE (09:02)
[2017-01-09] MEDS ORDERED: Lidocaine Viscous Oral Soln 15 ML SOLUTION ONE (09:03)
[2017-01-09] MEDS ORDERED: *HR* FentaNYL (PF) 100 MCG/2 ML VIAL ONE ×3 (09:03→14:15)
--- NOTE | 2017-01-09 09:13 | Pre-Sedation Evaluation ---
Pre-sedation evaluation - Pre-sedation checklist Date of procedure: 01/09/17 Procedure: Bronchoscopy, EBUS biopsy Recent Vitals: Last Vital Signs Temp 97.4 F L 01/09/17 08:20 Pulse 78 01/09/17 08:20 Resp 16 01/09/17 08:20 BP 122/74 01/09/17 08:20 Pulse Ox 95 01/09/17 08:20 H&P (including ROS) documented in medical record: Yes Previous reaction to sedatives/anesthetics: No Dietary Status: NPO after Midnight Airway Assessment: Patient can open mouth completely, TMJ function normal, Micrognathia (under-bite, receding chin) absent, Neck with adequate range of motion Possible difficult airway: No ASA Classification *see protocol: CLASS III-Severe systemic disease
[2017-01-09] MEDS ORDERED: Tetracaine/Benzocaine/Butamben 200MG/SPRAY (100SPY/BOT) MM ONE (09:25)
[2017-01-09] MEDS: *HR* Midazolam HCl 5 MG/5 ML VIAL IVP PRN ×6 (09:28→10:12)
[2017-01-09] MEDS: *HR* FentaNYL (PF) 100 MCG/2 ML VIAL IVP PRN ×4 (09:28→10:09)
[2017-01-09] MEDS ORDERED: 0.9 % Sodium Chloride 1,000 ML IVC SCH (09:30)
[2017-01-09] MEDS: Lidocaine Viscous Oral Soln 15 ML SOLUTION MM ONE ×2 (09:50→11:08)
[2017-01-09] MEDS: Lactobacillus 1 EACH CAP.SPRINK PO SCH ×2 (09:55→21:06)
[2017-01-09] MEDS: Gabapentin 300 MG CAPSULE PO SCH ×2 (09:55→21:07)
[2017-01-09] MEDS: predniSONE 20 MG TABLET PO SCH (09:55)
[2017-01-09] MEDS ORDERED: Ipratropium/Albuterol Neb 3 ML ONE (10:27)
[2017-01-09] MEDS ORDERED: Ipratropium/Albuterol Neb 3 ML IH ONE (10:38)
--- NOTE | 2017-01-09 11:03 | Urology Progress Note ---
Date of Encounter: 01/09/17 Time of Encounter: 11:02 - Assessment and Plan (1) Hematuria Current Visit: Yes Status: Acute Assessment and plan: to OR today for cysto clot evac and ureteroscopy (2) Metastatic cancer Current Visit: Yes Status: Acute Progress Note Narrative: hematuria persisting. sp bronch and biopsy today Objective Initial Vital Signs Temp Pulse Resp BP Pulse Ox 97.7 F 77 16 125/78 98 01/05/17 11:57 01/05/17 11:57 01/05/17 11:57 01/05/17 11:57 01/05/17 11:57 - General physical appearance Present: well developed - Abdomen Present: soft - Labs 01/08/17 08:55 01/08/17 08:55 - VTE Reasons for not Prescribing Prophylaxis: Medical contraindication Documentation of Mechanical Device: Graduated compression elastic hosiery Consult Discharge Plan - Plan Referrals: Aiden Swartz DO [Primary Care Provider] - 01/17/17 11:00 am
[2017-01-09] MEDS: 0.9 % Sodium Chloride 1,000 ML IVC SCH (11:04)
[2017-01-09] MEDS: Nicotine 21 MG PATCH.TD24 TD SCH (11:06)
[2017-01-09 12:21] LABS: Calcium 8.8 mg/dL (8.6-10.8); Potassium 4.8 mEq/L (3.5-4.5)
--- NOTE | 2017-01-09 12:28 | Pulmonology Progress Note ---
Date of Encounter: 01/09/17 Time of Encounter: 12:22 Assessment and Plan (1) Abnormal CT scan, chest Current Visit: Yes Status: Acute CT scan of the chest reveals a right hilar mass and mediastinal adenopathy. The differential diagnosis includes a new primary lung cancer versus metastatic renal cell carcinoma. The patient is status post bronchoscopy with EBUS guided biopsy on 01/09/2017. There was an ample sized subcarinal lymph node, which was biopsied. Unable to visualize right hilar mass and paratracheal lymphadenopathy noted on CT scan of the chest. On-site pathology from subcarinal lymph node revealed necrosis, and we will await final pathologic evaluation. I am concerned that the biopsy will be nondiagnostic. He may need a repeat bronchoscopy versus IR guided biopsy of other metastatic lesions. (2) COPD with acute exacerbation Current Visit: Yes Status: Acute Agree with steroids and bronchodilators. Recommend finishing a two-week total course of prednisone. COPD exacerbation may be related to recent pneumonia which was treated with antibiotics previously. Recommend finishing a 5 day course of levofloxacin and await cultures obtained from bronchoscopy. (3) Lung mass Current Visit: Yes Status: Acute (4) Mediastinal adenopathy Current Visit: Yes Status: Acute Subjective Principal diagnosis: Abnormal CT scan of the chest Interval history: No acute overnight events. Patient denies fevers or chills. He states he feels a little more short of breath today. Objective PUL Vital signs: Last Vital Signs Temp 98.2 F 01/09/17 11:14 Pulse 84 01/09/17 11:14 Resp 16 01/09/17 11:14 BP 131/74 01/09/17 11:14 Pulse Ox 92 L 01/09/17 11:14 General: Chronically ill-appearing male who is in no acute distress Eyes: nonicteric ENT: oropharynx moist Neck: supple, no lymphadenopathy Lungs: Clear to auscultation bilaterally Cardiovascular: regular rate and rhythm Gastrointestinal: normoactive bowel sounds, soft, non-tender, non-distended Integumentary: normal Extremities: no cyanosis, no edema Musculoskeletal: no deformities Neuro: normal mental status, non-focal exam Psych: mood appropriate, affect normal Results - Laboratory Findings CBC and BMP: 01/08/17 08:55 01/09/17 11:48 Abnormal lab findings: Abnormal lab results WBC 12.0 K/mcL (4.3-11.1) H 01/08/17 08:55 RBC 4.05 M/mcL (4.19-5.50) L 01/08/17 08:55 Hgb 11.7 g/dL (12.9-16.9) L 01/08/17 08:55 MCHC 30.3 g/dL (31.6-35.5) L 01/08/17 08:55 Neutrophils # 9.6 K/mcL (1.6-8.9) H 01/08/17 08:55 Potassium 4.8 mEq/L (3.5-4.5) H 01/09/17 11:48 Carbon Dioxide 17 mEq/L (19-29) L 01/09/17 11:48 BUN 81 mg/dL (8-26) H 01/09/17 11:48 Creatinine 2.05 mg/dL (0.72-1.25) H 01/09/17 11:48 Est GFR ( Amer) 39 (> 60) L 01/09/17 11:48 Est GFR (Non-Af Amer) 32 (> 60) L 01/09/17 11:48 BUN/Creatinine Ratio 40 (6-26) H 01/09/17 11:48 Glucose 106 mg/dL (70-99) H 01/09/17 11:48 POC Glucose 110 (58-89) H 01/09/17 11:06 Calculated Osmolality 311 (280-300) H 01/09/17 11:48 AST 36 Units/L (5-34) H 01/05/17 13:21 ALT 59 Units/L (0-55) H 01/05/17 13:21 Alkaline Phosphatase 262 Units/L (38-126) H 01/05/17 13:21 Lactate Dehydrogenase 719 Units/L (159-327) H 01/06/17 14:52 Albumin 2.7 g/dL (3.5-5.0) L 01/05/17 13:21 Globulin 4.9 g/dL (2.4-3.5) H 01/05/17 13:21 Albumin/Globulin Ratio 0.6 (1.1-2.2) L 01/05/17 13:21 Ur Specimen Adequacy See below A 01/05/17 12:30 Urine Color Red (Yellow) A 01/05/17 12:30 Urine Clarity Turbid (Clear) A 01/05/17 12:30 Urine Protein >=300 mg/dL (Neg-Trace) H 01/05/17 12:30 Urine Blood Large (Negative) H 01/05/17 12:30 Urine Microscopic RBC TNTC per hpf (0-3) H 01/05/17 12:30 Urine Microscopic WBC 15-30 per hpf (0-3) H 01/05/17 12:30 Urine Bacteria Many per hpf (None-Few) H 01/05/17 12:30 Granular Casts Few per lpf (None Seen) H 01/05/17 12:30 Ur Culture Indicated? YES (NO) A 01/05/17 12:30 - Clinical Findings Intake & Output: Intake & Output 01/08/17 01/09/17 01/09/17 23:59 07:59 15:59 Intake Total 1320 / 1320 1060 / 1060 200 / 200 Output Total 500 / 500 275 / 275 250 / 250 Balance 820 / 820 785 / 785 -50 / -50 Weight 89.159 kg - VTE Reasons for not Prescribing Prophylaxis: Medical contraindication Documentation of Mechanical Device: Graduated compression elastic hosiery Consult Discharge Plan - Plan Referrals: Aiden Swartz DO [Primary Care Provider] - 01/17/17 11:00 am
[2017-01-09] MEDS ORDERED: *HR* Propofol 200 MG/20 ML VIAL IVP ONE (12:47)
[2017-01-09] MEDS ORDERED: Lidocaine -MPF 2% 2 ML VIAL ONE (12:47)
[2017-01-09 13:32] LABS: Basophils % 0.1 %; Eosinophils # 0.1 K/mcL (0.0-0.6); Hematocrit 35.9 % (37.5-50.1); Hemoglobin 11.7 g/dL (12.9-16.9); Immature Granulocytes % 2.3 % (0-4); Lymphocytes # 0.7 K/mcL (0.6-4.6); Lymphocytes % 5.1 %; Mean Corpuscular HGB Conc 32.6 g/dL (31.6-35.5); Mean Corpuscular Hemoglobin 29.7 pg (28.0-33.3); Mean Corpuscular Volume 91.1 fL (83.0-100.0); Monocytes # 1.9 K/mcL (0.0-1.3); Monocytes % 13.3 %; Neutrophils # 11.1 K/mcL (1.6-8.9); Platelet Count 180 K/mcL (140-400); Red Blood Count 3.94 M/mcL (4.19-5.50); Red Cell Distribution Width 13.5 % (11.5-14.5); Segmented Neutrophils % 78.2 %
[2017-01-09] MEDS ORDERED: Naloxone 0.4 MG/ML INJ IVP PRN (13:49)
[2017-01-09] MEDS ORDERED: *HR* Meperidine 25 MG/ML SYRINGE IVP PRN (13:49)
[2017-01-09] MEDS ORDERED: Albuterol 2.5 MG/3 ML NEBULIZER IH ONE (13:49)
[2017-01-09] MEDS ORDERED: Ondansetron 4 MG/2 ML VIAL IVP ONE (13:49)
[2017-01-09] MEDS ORDERED: *HR* Labetalol 100 MG/20 ML MDV IVP PRN (13:49)
[2017-01-09] MEDS ORDERED: Dexamethasone 4 MG/ML VIAL ONE (14:04)
[2017-01-09] MEDS ORDERED: Ondansetron 4 MG/2 ML VIAL ONE (14:04)
--- NOTE | 2017-01-09 14:28 | Internal Med Progress Note ---
Date of Encounter: 01/09/17 Time of Encounter: 14:24 - Assessment and plan (1) VINCENT (acute kidney injury) Current Visit: Yes Status: Acute Assessment and plan: did undergo right nephrectomy last year. remains stable/ We will continue to monitor creatinine, avoid nephrotoxins renal dose antibiotics. (2) Hematuria Current Visit: Yes Status: Acute Assessment and plan: has been experiencing hematuria for the past 2 days he does have a history of renal cell carcinoma with right nephrectomy last year. CT of abdomen and pelvis does demonstrate metastasis to liver and bony metastases. s/p removal of dennis , hematuria is persistent. urology folllowing, cystoscopy today. will follow with urology recommendtaion (3) Metastatic cancer Current Visit: Yes Status: Acute Assessment and plan: patient has a past history of right nephrectomy due to renal cell carcinoma. He has been experiencing dysuria as well as hematuria the past week. CT of abdomen and pelvis revealed possible liver metastases and bone metastases. oncology has been consulted, CT of chest without contrast on 01/06/[address] of abdomen and pelvis without contrast 01/04/2017 showed right hilar mass with invasion to lungs, and mediastinal adenopathy. Also postobstructive pneumonia right lower lobe Diffuse liver metastasis Lytic bone lesions and subcutaneous nodules. MRI brain without contrast 01/06/2017 negative for metastasis as per oncology : Most likely to start with Pazopanib or sunitinib. We will also make sure he does not have any FISH SEINER metastasis. If necessary would do MRI of the spine. May consider radiation for palliation especially to the painful metastasis s/p Bronchoscopy and biopsy of the right hilar mass which may be primary or renal cell cancer with mets, will follow path results (4) UTI (urinary tract infection) Current Visit: Yes Status: Acute Assessment and plan: the LE and nitrite was negative, he does have wbc in the urine but the cx is negative will not treat for UTI at this time Qualifiers: Urinary tract infection type: site unspecified Hematuria presence: with hematuria Qualified Code(s): N39.0 - Urinary tract infection, site not specified; R31.9 - Hematuria, unspecified (5) Pneumonia Current Visit: Yes Status: Acute Assessment and plan: postobstructive pneumonia right lower lobe from the right hilar mass. c/o cough with productive phlegm , no hemoptysis at this time. antibiotics de escalated to levoflox by pulm, bronch and biopsy today. 5 days of levofloxacin and stop. Qualifiers: Aspiration pneumonia type: unspecified Laterality: right Lung location: lower lobe of lung Qualified Code(s): J69.0 - Pneumonitis due to inhalation of food and vomit - Time Spent With Patient 25 - 35 minutes - Subjective Interval history: patinet seen at the bedside, admitted for hematuria, s/p nephrectomy . denies any complains today, had the dennis taken out , no problems passing urine , still has hematuria, urology planning for cystoscopy toDAY, also consulted pulm, S/P bronchoscopy with biopsy TPDAY WITH pulmonary. - Constitutional Vitals: Temp Pulse Resp BP Pulse Ox 98.2 F 84 16 131/74 92 L 01/09/17 11:14 01/09/17 11:14 01/09/17 11:14 01/09/17 11:14 01/09/17 11:14 General appearance: Present: A&O X 3, answers questions appropriately Exam: Eye Eye exam: Present: PERRL, conjuntiva pink, sclera anicteric Pupils: Present: PERRL - Respiratory Respiratory exam: Present: CTAB. Absent: accessory muscle use, rales, rhonchi, wheezes - Cardiovascular Cardiovascular exam: Present: irregular rhythm, +S1, +S2. Absent: diastolic murmur, gallop, rubs, systolic murmur - GI/Abdominal GI/Abdominal exam: Present: normal bowel sounds, soft, no peritoneal signs. Absent: distended, tenderness - Extremities Exam Extremities exam: Present: warm, radial pulses palpable and symetrical. Absent : calf tenderness, cyanotic, pedal edema amputation TMT , wound site looks dry and clean - Neurological Exam Neurological exam: Present: CN II-XII intact, oriented X3, no focal deficits. Absent: pronater drift, facial droop, speech deficit Internal Medicine: Result - Labs CBC & Chem 7: 01/09/17 12:48 01/09/17 11:48 Labs: Short CBC 01/09/17 Range/Units 12:48 WBC 14.3 H (4.3-11.1) K/mcL Hgb 11.7 L (12.9-16.9) g/dL Hct 35.9 L (37.5-50.1) % Plt Count 180 (140-400) K/mcL Neutrophils # 11.1 H (1.6-8.9) K/mcL BMP 01/09/17 11:48 Sodium 138 Potassium 4.8 H Chloride 108 Carbon Dioxide 17 L BUN 81 H Creatinine 2.05 H Glucose 106 H Calcium 8.8 - Impressions Impressions Shoulder X-Ray 01/08/17 09:01 IMPRESSION: 1. Mildly displaced fracture involving the left 2nd rib and suspected nondisplaced fracture of the left 3rd rib. 2. No acute fracture or dislocation of the left shoulder. 3. 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 D/ / 01/08/2017 15:18:44 Juan Carter MD / berna Interpreting Provider: Juan Carter MD - VTE Reasons for not Prescribing Prophylaxis: Medical contraindication Documentation of Mechanical Device: Graduated compression elastic hosiery Consult Discharge Plan - Plan Referrals: Aiden Swartz DO [Primary Care Provider] - 01/17/17 11:00 am
[2017-01-09] MEDS ORDERED: EPHEDrine 50 MG/ML VIAL ONE (14:32)
[2017-01-09] MEDS: *HR* HYDROmorphone (PF) 1 MG/ML SYRINGE IVP PRN ×2 (15:21→15:31)
--- NOTE | 2017-01-09 15:47 | Anesthesia Evaluation Post Op ---
Date of Encounter: 01/09/17 Time of Encounter: 15:45 - Vital Signs Vital Signs: Vital Signs/O2 Sat/Glucose, Most Recent Temp Pulse Resp BP Pulse Ox 97.3 F L 79 20 156/85 96 01/09/17 15:30 01/09/17 15:40 01/09/17 15:40 01/09/17 15:40 01/09/17 15:40 Blood Glucose* 110 - Lungs Lungs: Clear Ascult./Percussion - Airway Airway: Non-obstructed - Cardiovascular Regular Rate - Mental Status Mental Status: Alert & Oriented, Answers Appropriately - Pain Pain Scale: 0 Pain Scale used: Numeric (1 - 10) - Nausea Vomiting Nausea Vomiting: Not Present - Hydration Hydration: NPO Notes: 01/09/17 15:46 AAOx3, VSS with no complaints - Discharge PostOp Status: Transfer Patient to floor
--- NOTE | 2017-01-09 15:51 | Operative Note ---
Date of procedure: 01/09/17 Pre-op diagnosis: hematuria with clots Post-op diagnosis: same (bladder tumor) Procedure: Cystoscopy with clot evacuation, transurethral resection of bladder tumor medium , left 6 x 26 cm ureteral stent placement, left ureteroscopy Anesthesia: SAPNA Surgeon: Ricki Henriquez Specimen: Bladder tumor Condition: stable Disposition: PACU Procedure in Detail: Patient was prepped and draped in normal sterile fashion. Timeout procedure performed. I then inserted the cystoscope in the patient's bladder and encountered a large clot in the patient's bladder. I did not remove the scope and placed a resectoscope and the patient's bladder. At this point I was able to use the Brittany syringe and remove all clot from the patient's bladder. I then performed visualization and on the left lateral wall around the left ureteral orifice a red erythematous tumor appearing area was noted. At this point I attempted to find the left ureteral orifice which was unsuccessful. I proceeded to use the loop electrode and resect approximate 3 cm of this red erythematous area. I was able to locate the left ureteral orifice. The area around this appeared grossly necrotic consistent with cancer. Hemostasis was obtained. All specimen was removed and the patient's bladder. At this point I then placed the semirigid ureteroscope into the bladder and advanced up the left ureter. No further tumors were seen but the distal left ureter was quite narrow. I then placed a sensor wire into the left kidney. Over this I then placed a 6 x 26 cm ureteral stent with good curl seen in the kidney and in the bladder on the left side. 18-Hebrew Coude catheter was placed at the end of the procedure.
[2017-01-09] MEDS ORDERED: Albuterol 2.5 MG/3 ML NEBULIZER IH PRN (16:42)
[2017-01-09] MEDS ORDERED: PSEUDOEPHEDRINE PO PRN (16:42)
[2017-01-09] MEDS ORDERED: BROMPHENIRAMINE PO PRN (16:42)
[2017-01-09] MEDS ORDERED: DEXTROMETHORPHAN PO PRN (16:42)
[2017-01-09] MEDS ORDERED: Ondansetron 4 MG/2 ML VIAL IVP PRN (16:42)
[2017-01-09] MEDS: Famotidine 20 MG TABLET PO SCH (21:07)
[2017-01-09] MEDS: Acetaminophen 325 MG TABLET PO PRN (21:10)
[2017-01-10] MEDS: 0.9 % Sodium Chloride 1,000 ML IVC SCH ×3 (00:07→09:48)
[2017-01-10] MEDS: Ipratropium/Albuterol Neb 3 ML IH SCH ×4 (04:13→22:25)
--- NOTE | 2017-01-10 08:35 | Pulmonology Progress Note ---
Date of Encounter: 01/10/17 Time of Encounter: 08:33 Assessment and Plan (1) Abnormal CT scan, chest Current Visit: Yes Status: Acute CT scan of the chest reveals a right hilar mass and mediastinal adenopathy. The differential diagnosis includes a new primary lung cancer versus metastatic disease from other primary (renal cell carcinoma or bladder CA). The patient is status post bronchoscopy with EBUS guided biopsy on 01/09/2017. There was an ample sized subcarinal lymph node, which was biopsied. Unable to visualize right hilar mass and paratracheal lymphadenopathy noted on CT scan of the chest. On-site pathology from subcarinal lymph node revealed necrotic tissue, and we will await final pathologic evaluation. I am concerned that the biopsy will be nondiagnostic. He may need a repeat bronchoscopy versus IR guided biopsy of other metastatic lesions. This can be pursued as an outpatient. (2) COPD with acute exacerbation Current Visit: Yes Status: Acute Agree with steroids and bronchodilators. Recommend finishing a two-week total course of prednisone. COPD exacerbation may be related to recent pneumonia which was treated with antibiotics previously. Recommend finishing a 5 day course of levofloxacin and await cultures obtained from bronchoscopy. No further recommendations from a pulmonary standpoint and will sign off. Please call with questions. (3) Lung mass Current Visit: Yes Status: Acute (4) Mediastinal adenopathy Current Visit: Yes Status: Acute Subjective Principal diagnosis: Abnormal CT scan of the chest Interval history: No acute overnight events. Patient underwent bronchoscopy and cystoscopy yesterday. He denies any significant hemoptysis. No fever/chills. His breathing feels stable. All other systems reviewed and otherwise negative. Objective PUL Vital signs: Last Vital Signs Temp 97.8 F 01/10/17 07:17 Pulse 77 01/10/17 07:17 Resp 18 01/10/17 07:17 BP 147/80 01/10/17 07:17 Pulse Ox 96 01/10/17 07:17 General: Chronically ill-appearing male who is in no acute distress Eyes: nonicteric ENT: oropharynx moist Neck: supple, no lymphadenopathy Lungs: Clear to auscultation bilaterally Cardiovascular: regular rate and rhythm Gastrointestinal: normoactive bowel sounds, soft, non-tender, non-distended Integumentary: normal Extremities: no cyanosis, no edema Musculoskeletal: no deformities Neuro: normal mental status, non-focal exam Psych: mood appropriate, affect normal Results - Laboratory Findings CBC and BMP: 01/09/17 12:48 01/09/17 11:48 Abnormal lab findings: Abnormal lab results WBC 14.3 K/mcL (4.3-11.1) H 01/09/17 12:48 RBC 3.94 M/mcL (4.19-5.50) L 01/09/17 12:48 Hgb 11.7 g/dL (12.9-16.9) L 01/09/17 12:48 Hct 35.9 % (37.5-50.1) L 01/09/17 12:48 Neutrophils # 11.1 K/mcL (1.6-8.9) H 01/09/17 12:48 Monocytes # 1.9 K/mcL (0.0-1.3) H 01/09/17 12:48 Potassium 4.8 mEq/L (3.5-4.5) H 01/09/17 11:48 Carbon Dioxide 17 mEq/L (19-29) L 01/09/17 11:48 BUN 81 mg/dL (8-26) H 01/09/17 11:48 Creatinine 2.05 mg/dL (0.72-1.25) H 01/09/17 11:48 Est GFR ( Amer) 39 (> 60) L 01/09/17 11:48 Est GFR (Non-Af Amer) 32 (> 60) L 01/09/17 11:48 BUN/Creatinine Ratio 40 (6-26) H 01/09/17 11:48 Glucose 106 mg/dL (70-99) H 01/09/17 11:48 POC Glucose 158 (58-89) H 01/10/17 05:56 Calculated Osmolality 311 (280-300) H 01/09/17 11:48 AST 36 Units/L (5-34) H 01/05/17 13:21 ALT 59 Units/L (0-55) H 01/05/17 13:21 Alkaline Phosphatase 262 Units/L (38-126) H 01/05/17 13:21 Lactate Dehydrogenase 719 Units/L (159-327) H 01/06/17 14:52 Albumin 2.7 g/dL (3.5-5.0) L 01/05/17 13:21 Globulin 4.9 g/dL (2.4-3.5) H 01/05/17 13:21 Albumin/Globulin Ratio 0.6 (1.1-2.2) L 01/05/17 13:21 Ur Specimen Adequacy See below A 01/05/17 12:30 Urine Color Red (Yellow) A 01/05/17 12:30 Urine Clarity Turbid (Clear) A 01/05/17 12:30 Urine Protein >=300 mg/dL (Neg-Trace) H 01/05/17 12:30 Urine Blood Large (Negative) H 01/05/17 12:30 Urine Microscopic RBC TNTC per hpf (0-3) H 01/05/17 12:30 Urine Microscopic WBC 15-30 per hpf (0-3) H 01/05/17 12:30 Urine Bacteria Many per hpf (None-Few) H 01/05/17 12:30 Granular Casts Few per lpf (None Seen) H 01/05/17 12:30 Ur Culture Indicated? YES (NO) A 01/05/17 12:30 - Microbiology Findings Microbiology Findings: Microbiology, Last 48 Hours 01/09/17 Unknown Gram Stain - Final Right Lower Lobe Lung - Clinical Findings Intake & Output: Intake & Output 01/09/17 01/10/17 01/10/17 23:59 07:59 15:59 Intake Total 0 / 0 400 / 400 Output Total 1025 / 1025 875 / 875 Balance -1025 / -1025 -475 / -475 - VTE Reasons for not Prescribing Prophylaxis: Medical contraindication Documentation of Mechanical Device: Graduated compression elastic hosiery Consult Discharge Plan - Plan Referrals: Ricki Henriquez MD [Partnered Physician] - Aiden Swartz DO [Primary Care Provider] - 01/17/17 11:00 am
[2017-01-10] MEDS ORDERED: Levofloxacin 750 MG/150 ML 750 MG/150 ML BAG IVPB SCH (09:00)
[2017-01-10] MEDS: Nicotine 21 MG PATCH.TD24 TD SCH (09:45)
[2017-01-10] MEDS: Gabapentin 300 MG CAPSULE PO SCH ×3 (09:45→20:08)
[2017-01-10] MEDS: Lactobacillus 1 EACH CAP.SPRINK PO SCH ×2 (09:46→20:05)
[2017-01-10] MEDS: Acetaminophen 325 MG TABLET PO PRN ×2 (09:46→18:01)
--- NOTE | 2017-01-10 11:41 | Urology Progress Note ---
Date of Encounter: 01/10/17 Time of Encounter: 11:38 - Assessment and Plan (1) Hematuria Current Visit: Yes Status: Acute Assessment and plan: from bladder tumor. catheter removed. (2) Metastatic cancer Current Visit: Yes Status: Acute Assessment and plan: unsure of cause. awaiting biopsy results. Progress Note Narrative: Kj is a 76 y/o male with a history of right renal cell carcinoma status post nephrectomy patient with gross hematuria was taken to the operating room yesterday for clot evacuation and was found to have a left lateral wall bladder tumor obstructing the left ureter. Patient had left ureteroscopy and stent placement and resection of bladder tumor. Patient did well overnight with minimal hematuria. Objective Initial Vital Signs Temp Pulse Resp BP Pulse Ox 97.7 F 77 16 125/78 98 01/05/17 11:57 01/05/17 11:57 01/05/17 11:57 01/05/17 11:57 01/05/17 11:57 - General physical appearance Present: well developed - Abdomen Present: soft - Genitourinary Present: other (urine clear in tubing) - Labs 01/09/17 12:48 01/09/17 11:48 Diabetes panel 01/09/17 Range/Units 11:48 Sodium 138 (136-145) mEq/L Potassium 4.8 H (3.5-4.5) mEq/L Chloride 108 (98-109) mEq/L Carbon Dioxide 17 L (19-29) mEq/L BUN 81 H (8-26) mg/dL Creatinine 2.05 H (0.72-1.25) mg/dL Glucose 106 H (70-99) mg/dL Calcium 8.8 (8.6-10.8) mg/dL Calcium panel 01/09/17 Range/Units 11:48 Calcium 8.8 (8.6-10.8) mg/dL Pituitary panel 01/09/17 Range/Units 11:48 Sodium 138 (136-145) mEq/L Potassium 4.8 H (3.5-4.5) mEq/L Chloride 108 (98-109) mEq/L Carbon Dioxide 17 L (19-29) mEq/L BUN 81 H (8-26) mg/dL Creatinine 2.05 H (0.72-1.25) mg/dL Glucose 106 H (70-99) mg/dL Calcium 8.8 (8.6-10.8) mg/dL Adrenal panel 01/09/17 Range/Units 11:48 Sodium 138 (136-145) mEq/L Potassium 4.8 H (3.5-4.5) mEq/L Chloride 108 (98-109) mEq/L Carbon Dioxide 17 L (19-29) mEq/L BUN 81 H (8-26) mg/dL Creatinine 2.05 H (0.72-1.25) mg/dL Glucose 106 H (70-99) mg/dL Calcium 8.8 (8.6-10.8) mg/dL - VTE Reasons for not Prescribing Prophylaxis: Medical contraindication Documentation of Mechanical Device: Graduated compression elastic hosiery Consult Discharge Plan - Plan Referrals: Ricki Henriquez MD [Partnered Physician] - Aiden Swartz DO [Primary Care Provider] - 01/17/17 11:00 am
--- NOTE | 2017-01-10 12:50 | Internal Med Progress Note ---
Date of Encounter: 01/10/17 Time of Encounter: 12:30 - Assessment and plan (1) Gross hematuria Current Visit: No Status: Acute Assessment and plan: presents with hematuria. 01/09: cystoscopy with clot evacuation and found to have a left lateral wall bladder tumor obstructing the left ureter. 01/10: dennis catheter removed. Appreciate urology input. (2) Pneumonia Current Visit: Yes Status: Acute Assessment and plan: postobstructive pneumonia right lower lobe from the right hilar mass. c/o cough with productive phlegm , no hemoptysis at this time. continue oral levaquin to complete 5 days. Qualifiers: Aspiration pneumonia type: unspecified Laterality: right Lung location: lower lobe of lung Qualified Code(s): J69.0 - Pneumonitis due to inhalation of food and vomit (3) COPD with acute exacerbation Current Visit: Yes Status: Acute Assessment and plan: secondary to PNA. systemic steroids, nebs, antibiotics. (4) Bladder tumor Current Visit: Yes Status: Acute Assessment and plan: plan as above. (5) Right renal mass Current Visit: No Status: Resolved (6) Acute worsening of stage 4 chronic kidney disease Current Visit: Yes Status: Acute Assessment and plan: pre-renal from hematuria. kidney function is at baseline. avoid nephrotoxins. close monitoring. (7) Metastatic cancer Current Visit: Yes Status: Acute Assessment and plan: patient has a past history of right nephrectomy due to renal cell carcinoma. He has been experiencing dysuria as well as hematuria the past week. CT of abdomen and pelvis revealed possible liver metastases and bone metastases. oncology consulted, CT of chest without contrast on 01/06/[address] of abdomen and pelvis without contrast 01/04/2017 showed right hilar mass with invasion to lungs, and mediastinal adenopathy. Also postobstructive pneumonia right lower lobe Diffuse liver metastasis. Lytic bone lesions and subcutaneous nodules. MRI brain without contrast 01/06/2017 negative for metastasis s/p Bronchoscopy and biopsy of the right hilar mass which may be primary or renal cell cancer with mets, will follow path results follow up in the outpatient clinic. (8) Lung mass Current Visit: Yes Status: Acute Assessment and plan: plan as above (9) History of renal cell carcinoma Current Visit: Yes Status: Acute Assessment and plan: plan as above. - Subjective Interval history: patient reports left leg swelling worse than right. no pain. he has mild pain at his lower abdomen after cystoscopy yesterday. dennis catheter removed this morning and patient urinated once afterwards with some dysuria. - Constitutional Vitals: Temp Pulse Resp BP Pulse Ox 97.5 F L 80 18 151/81 96 01/10/17 11:12 01/10/17 11:12 01/10/17 11:12 01/10/17 11:12 01/10/17 11:12 General appearance: Present: cooperative, A&O X 3, pleasant, no acute distress, answers questions appropriately - Eye Eye exam: Present: PERRL, sclera anicteric - ENT ENT exam: Present: mucous membranes moist - Neck Neck exam general surgery: Present: supple, trachea midline. Absent: lymphadenopathy - Respiratory Respiratory exam: Present: rhonchi. Absent: wheezes - Cardiovascular Cardiovascular exam: Present: RRR - GI/Abdominal GI/Abdominal exam: Present: normal bowel sounds, soft, tenderness (mild tenderness at lower abdomen). Absent: distended - Extremities Exam Extremities exam: Present: pedal edema (2+ LE edema L>R) - Back Exam Back exam: Absent: CVA tenderness (L), CVA tenderness (R) - Neurological Exam Neurological exam: Present: alert, oriented X3, no focal deficits. Absent: facial droop, speech deficit - Skin Skin exam: Absent: rash Internal Medicine: Result - Labs CBC & Chem 7: 01/10/17 14:00 01/10/17 12:55 Labs: Short CBC 01/09/17 Range/Units 12:48 WBC 14.3 H (4.3-11.1) K/mcL Hgb 11.7 L (12.9-16.9) g/dL Hct 35.9 L (37.5-50.1) % Plt Count 180 (140-400) K/mcL Neutrophils # 11.1 H (1.6-8.9) K/mcL - Impressions Impressions Fluoroscopy 01/09/17 00:00 IMPRESSION: Intraprocedural fluoroscopic spot images as above. See separate procedure report for more information. D/ / Kristopher Mendiola MD / Kristopher Mendiola MD Interpreting Provider: Kristopher Mendiola MD - VTE Reasons for not Prescribing Prophylaxis: Medical contraindication Documentation of Mechanical Device: Graduated compression elastic hosiery Consult Discharge Plan - Plan Referrals: Ricki Henriquez MD [Partnered Physician] - Hyun Watts MD [Partnered Physician] - 01/17/17 11:30 am Aiden Swartz DO [Primary Care Provider] - 01/17/17 11:00 am
[2017-01-10 13:16] LABS: Calcium 8.7 mg/dL (8.6-10.8); Magnesium 1.6 mg/dL (1.6-2.6); Potassium 5.1 mEq/L (3.5-4.5)
--- NOTE | 2017-01-10 13:26 | Event Note ---
Date of Encounter: 01/10/17 Time of Encounter: 13:19 Dr Watts reviewed biopsy result of subcarina node on bronchocoscopy today. Dr Tanner called us 2 days ago suspecting this would be non diagnostic, and he was correct. He suggested IR liver biopsy. This is suspected by us of his existing metastatic renal cancer, and not a new lung primary. Dr Watts wants IR biopsy. I spoke to IR nurse and advised them about the case. IR consult is now ordered, as well as coag panel and fibrinogen. Biopsy planned and expected for Friday01/13/17. Please be sure NPO after midnight on 01/12/17.
[2017-01-10 14:37] LABS: Basophils % 0.1 %; Eosinophils # 0.1 K/mcL (0.0-0.6); Eosinophils % 0.9 %; Hematocrit 32.6 % (37.5-50.1); Immature Granulocytes % 2.3 % (0-4); Lymphocytes # 0.4 K/mcL (0.6-4.6); Lymphocytes % 4.2 %; Mean Corpuscular HGB Conc 29.8 g/dL (31.6-35.5); Mean Platelet Volume 10.7 fL (9.4-12.4); Monocytes # 1.2 K/mcL (0.0-1.3); Monocytes % 11.1 %; Neutrophils # 8.6 K/mcL (1.6-8.9); Platelet Count 177 K/mcL (140-400); Red Blood Count 3.35 M/mcL (4.19-5.50); Red Cell Distribution Width 13.7 % (11.5-14.5); Segmented Neutrophils % 81.4 %
[2017-01-10 14:39] LABS: Hemoglobin 9.7 g/dL (12.9-16.9); Mean Corpuscular Volume 97.3 fL (83.0-100.0)
[2017-01-10 14:41] LABS: INR 1.4; Prothrombin Time 15.1 Seconds (9.4-12.1)
[2017-01-10 14:44] LABS: Activated Partial Thrombo Time 27.4 Seconds (26.0-36.0)
[2017-01-10] MEDS: traMADol 50 MG TABLET PO PRN (20:05)
[2017-01-10] MEDS: Famotidine 20 MG TABLET PO SCH (20:06)
[2017-01-11] MEDS: 0.9 % Sodium Chloride 1,000 ML IVC SCH (00:22)
[2017-01-11] MEDS: Acetaminophen 325 MG TABLET PO PRN (01:56)
[2017-01-11] MEDS: Ipratropium/Albuterol Neb 3 ML IH SCH ×2 (04:05→11:29)
[2017-01-11 05:50] LABS: Basophils % 0.2 %; Eosinophils # 0.2 K/mcL (0.0-0.6); Eosinophils % 1.2 %; Hematocrit 36.2 % (37.5-50.1); Immature Granulocytes % 3.4 % (0-4); Lymphocytes # 0.7 K/mcL (0.6-4.6); Lymphocytes % 5.5 %; Mean Corpuscular HGB Conc 31.8 g/dL (31.6-35.5); Mean Corpuscular Hemoglobin 29.7 pg (28.0-33.3); Mean Corpuscular Volume 93.5 fL (83.0-100.0); Mean Platelet Volume 10.6 fL (9.4-12.4); Monocytes # 1.4 K/mcL (0.0-1.3); Monocytes % 10.8 %; Neutrophils # 10.3 K/mcL (1.6-8.9); Platelet Count 206 K/mcL (140-400); Red Blood Count 3.87 M/mcL (4.19-5.50); Red Cell Distribution Width 13.9 % (11.5-14.5); Segmented Neutrophils % 78.9 %
[2017-01-11 05:55] LABS: Hemoglobin 11.5 g/dL (12.9-16.9)
[2017-01-11 06:01] LABS: Magnesium 1.3 mg/dL (1.6-2.6); Potassium 5.3 mEq/L (3.5-4.5)
[2017-01-11] MEDS ORDERED: Magnesium Sulfate 2 GM in D5% in Water 100 ML IVPB STA (07:49)
[2017-01-11] MEDS: Gabapentin 300 MG CAPSULE PO SCH (08:36)
[2017-01-11] MEDS: Lactobacillus 1 EACH CAP.SPRINK PO SCH (08:36)
[2017-01-11] MEDS: Nicotine 21 MG PATCH.TD24 TD SCH (08:37)
[2017-01-11] MEDS: Bisacodyl 10 MG RECTAL SUPPOSITORY RC SCH (08:46)
[2017-01-11] MEDS: traMADol 50 MG TABLET PO PRN (08:50)
--- NOTE | 2017-01-11 09:30 | Urology Progress Note ---
Date of Encounter: 01/11/17 Time of Encounter: 09:28 - Assessment and Plan (1) Hematuria Current Visit: Yes Status: Acute Assessment and plan: Patient is voiding well. Expected dysuria. No further urologic recommendations at this time. Okay for discharge per urology standpoint. Follow-up with Dr. Henriquez in the next few weeks Progress Note Subjective: feels better Narrative: Postoperative day #2 TURBT. Patient states he still has some dysuria but urine is clearer Objective Initial Vital Signs Temp Pulse Resp BP Pulse Ox 97.7 F 77 16 125/78 98 01/05/17 11:57 01/05/17 11:57 01/05/17 11:57 01/05/17 11:57 01/05/17 11:57 - General physical appearance Present: well developed, no distress - Additional Exam Urine in commode is light transparent hematuria - Labs 01/11/17 05:19 01/11/17 05:19 Diabetes panel 01/10/17 01/11/17 Range/Units 12:55 05:19 Sodium 139 138 (136-145) mEq/L Potassium 5.1 H 5.3 H (3.5-4.5) mEq/L Chloride 110 H 110 H (98-109) mEq/L Carbon Dioxide 16 L 15 L (19-29) mEq/L BUN 68 H 59 H (8-26) mg/dL Creatinine 1.81 H 1.65 H (0.72-1.25) mg/dL Glucose 189 H 145 H (70-99) mg/dL Calcium 8.7 9.0 (8.6-10.8) mg/dL Calcium panel 01/10/17 01/11/17 Range/Units 12:55 05:19 Calcium 8.7 9.0 (8.6-10.8) mg/dL Pituitary panel 01/10/17 01/11/17 Range/Units 12:55 05:19 Sodium 139 138 (136-145) mEq/L Potassium 5.1 H 5.3 H (3.5-4.5) mEq/L Chloride 110 H 110 H (98-109) mEq/L Carbon Dioxide 16 L 15 L (19-29) mEq/L BUN 68 H 59 H (8-26) mg/dL Creatinine 1.81 H 1.65 H (0.72-1.25) mg/dL Glucose 189 H 145 H (70-99) mg/dL Calcium 8.7 9.0 (8.6-10.8) mg/dL Adrenal panel 01/10/17 01/11/17 Range/Units 12:55 05:19 Sodium 139 138 (136-145) mEq/L Potassium 5.1 H 5.3 H (3.5-4.5) mEq/L Chloride 110 H 110 H (98-109) mEq/L Carbon Dioxide 16 L 15 L (19-29) mEq/L BUN 68 H 59 H (8-26) mg/dL Creatinine 1.81 H 1.65 H (0.72-1.25) mg/dL Glucose 189 H 145 H (70-99) mg/dL Calcium 8.7 9.0 (8.6-10.8) mg/dL - VTE Reasons for not Prescribing Prophylaxis: Medical contraindication Documentation of Mechanical Device: Graduated compression elastic hosiery Consult Discharge Plan - Plan Referrals: Ricki Henriquez MD [Partnered Physician] - Hyun Watts MD [Partnered Physician] - 01/17/17 11:30 am Aiden Swartz DO [Primary Care Provider] - 01/17/17 11:00 am
[2017-01-11 12:01] VITALS: BP 117/73
[2017-01-11 13:08] LABS: Calcium 9.7 mg/dL (8.6-10.8); Potassium 5.4 mEq/L (3.5-4.5)
--- NOTE | 2017-01-11 13:50 | Discharge Summary ---
Date of Encounter: 01/11/17 Time of Encounter: 13:00 - Discharge Diagnosis (1) Gross hematuria Priority: Primary Status: Acute (2) Pneumonia Priority: Primary Status: Acute Qualifiers: Aspiration pneumonia type: unspecified Laterality: right Lung location: lower lobe of lung Qualified Code(s): J69.0 - Pneumonitis due to inhalation of food and vomit (3) COPD with acute exacerbation Priority: Primary Status: Acute (4) Bladder tumor Priority: Primary Status: Acute (5) Right renal mass Priority: Secondary Status: Resolved (6) Acute worsening of stage 4 chronic kidney disease Priority: Primary Status: Acute (7) Metastatic cancer Priority: Primary Status: Acute (8) Lung mass Priority: Primary Status: Acute (9) History of renal cell carcinoma Priority: Secondary Status: Chronic - Discharge Medications Prescriptions: Ipratropium/Albuterol Neb [Duoneb] 3 ml IH Q4HR 60 Days Lactobacillus [Culturelle] 1 each PO BID #20 cap.sprink Levofloxacin [Levaquin] 750 mg PO DAILY #1 tablet Nicotine Patch [Nicoderm] 21 mg TD DAILY #30 patch.td24 PredniSONE 10 mg PO AD #9 tablet Home Medications: Albuterol Sulfate [Proair Hfa] 2 puff IH Q4H PRN 04/21/16 [History] Famotidine [Pepcid] 20 mg PO BID 04/21/16 [History] Gabapentin [Neurontin] 600 mg PO TID 04/21/16 [History] Nebivolol [Bystolic] 5 mg PO DAILY 04/21/16 [History] Simvastatin [Zocor] 40 mg PO HS 04/21/16 [History] TraMADol [Ultram] 50 mg PO TID PRN 04/21/16 [History] Tamsulosin HCl [Flomax] 0.4 mg PO DAILY #30 cap.er.24h 09/14/16 [Rx] D-Methorphan Hb/P-Epd HCl/Bpm [Bromfed Dm Cough Syrup] 10 ml PO Q6-8H PRN #240 ml 12/30/16 [Rx] Acetaminophen [Tylenol] 650 mg PO BID PRN 01/05/17 [History] Ipratropium/Albuterol Neb [Duoneb] 3 ml IH Q4HR 60 Days 01/11/17 [Rx] Lactobacillus [Culturelle] 1 each PO BID #20 cap.sprink 01/11/17 [Rx] Levofloxacin [Levaquin] 750 mg PO DAILY #1 tablet 01/11/17 [Rx] Nicotine Patch [Nicoderm] 21 mg TD DAILY #30 patch.td24 01/11/17 [Rx] PredniSONE 10 mg PO AD #9 tablet 01/11/17 [Rx] Allergies/Adverse Reactions: Allergies codeine Adverse Reaction (Verified 01/05/17 16:06) Vomiting Penicillins [PCN] Adverse Reaction (Verified 01/05/17 16:06) Vomiting Procedures/tests Complete & Pending: Procedures Performed prior 72 hours Category Date Time Status EV venous imaging LE LT Routine Y 01/11/17 12:51 Completed Date of admission: 01/07/17 13:13 Primary care physician: Aiden Swartz Consults: 01/10/17 11:58 Consult to Occupational Therapy [CONS] Stat Comment: possible HH needs, please evaluate stat Consult to Physical Therapy [CONS] Stat Comment: possible HH needs please evaluate stat - Patient Status Disposition: Home Health Service Condition: Fair Functional capacity at discharge: uses cane/walker Overall status at discharge: patient is not back to baseline - Ambulatory Orders Ambulatory Orders: IR biopsy liver [IR] Time Frame: 4 Days, Facility: [facility] , Location: Interventional Radiology Basic Metabolic Panel [CHEM] Time Frame: 01/14/17, Facility: [facility], Location: Lab - Discharge Instructions Follow Up With: Ricki Henriquez MD [Partnered Physician] - Hyun Watts MD [Partnered Physician] - 01/17/17 11:30 am Aiden Swartz DO [Primary Care Provider] - 01/17/17 11:00 am Additional Instructions: check CBC and BMP in 1 week - Diet and Activity Activity: resume usual activities as tolerated Diet: low fat, low cholesterol, low salt diet, other (renal diet. low potassium) Interval History: Minimal abdominal pain that is getting better. Patient slept on the chair for the past 2 days because laying down on the bed hurts his back. Hospital course: Mr. Ngo is a 76 year old male with past medical history of COPD, renal cell carcinoma status post right nephrectomy, hypertension, tobacco use and CKD 4. He presents with hematuria and shortness of breath. He underwent cystoscopy with clot evacuation and found to have a left lateral wall bladder tumor obstructing the left ureter. He was treated for post-obstructive pneumonia and COPD exacerbation. he was newly diagnosed with metastatic cancer with mets to liver, lungs and bones. he underwent lung biopsy but results were non- diagnostic. Pt was explained in detail his new diagnosis of metastatic cancer, and further follow up. He verbalized understanding and agreed with the plan. All questions were answered. He also had acute kidney injury and hyperkalemia. diet was changed to low potassium. Left leg was swollen more compared to right. venous doppler of left leg was negative for DVT. CT of chest without contrast on 01/06/2017 showed right hilar mass with invasion to lungs, mediastinal adenopathy and postobstructive pneumonia in right lower lobe. CT of abdomen and pelvis without contrast 01/04/2017 showed Diffuse liver metastasis. Lytic bone lesions and subcutaneous nodules. MRI brain without contrast 01/06/2017 negative for metastasis lung biopsy by bronch was non-diagnostic. PLAN: Levaquin for a total course of 5 days. Prednisone taper for a total of 2 weeks. f/u in oncology clinic. f/u in the urology clinic. BMP next week. liver biopsy as outpatient. - Time Spent with Patient Total time spent providing and/or coordinating discharge services: - Constitutional Vitals: Temp Pulse Resp BP Pulse Ox 98.3 F 78 16 117/73 94 L 01/11/17 12:00 01/11/17 12:00 01/11/17 12:00 01/11/17 12:00 01/11/17 12:00 General appearance: Present: cooperative, A&O X 3, pleasant, no acute distress, answers questions appropriately - Eye Eye exam: Present: PERRL, sclera anicteric - ENT ENT exam: Present: mucous membranes moist - Neck Neck exam general surgery: Present: supple, trachea midline. Absent: lymphadenopathy - Respiratory Respiratory exam: Present: decreased breath sounds (at right base), rhonchi - Cardiovascular Cardiovascular exam: Present: RRR - GI/Abdominal GI/Abdominal exam: Present: normal bowel sounds, soft. Absent: tenderness - Extremities Exam Extremities exam: Present: pedal edema (bilaterally) - Back Exam Back exam: Absent: CVA tenderness (L), CVA tenderness (R) - Neurological Exam Neurological exam: Present: alert, oriented X3. Absent: facial droop, speech deficit - VTE Reasons for not Prescribing Prophylaxis: Medical contraindication Documentation of Mechanical Device: Graduated compression elastic hosiery
--- NOTE | 2017-01-11 14:22 | Physician Discharge Referral ---
Home Health/Hosp Referral Info Transfer to: Home Health Attending Provider: dorothy Provider in Charge Post Discharge: PCP - Diagnosis (1) Gross hematuria Status: Acute (2) Pneumonia Status: Acute (3) COPD with acute exacerbation Status: Acute (4) Bladder tumor Status: Acute (5) Right renal mass Status: Resolved (6) Acute worsening of stage 4 chronic kidney disease Status: Acute (7) Metastatic cancer Status: Acute (8) Lung mass Status: Acute (9) History of renal cell carcinoma Status: Chronic - Respiratory Orders Smoking Cessation: Smoking cessation has been advised. For more information, call the [place] Tobacco Quit Line at 6-530-GRNA-NOW. - Diet/Nutrition Diet/Nutrition Orders: No Added Salt (RICHARD), Renal, Cardiac - Activity Activity Orders: Walker - Services Needed Following services are medically necessary services: Nursing, Home Health Aide, Physical Therapy, Occupational Therapy - Transfer Medications Prescriptions: Ipratropium/Albuterol Neb [Duoneb] 3 ml IH Q4HR 60 Days Lactobacillus [Culturelle] 1 each PO BID #20 cap.sprink Levofloxacin [Levaquin] 750 mg PO DAILY #1 tablet Nicotine Patch [Nicoderm] 21 mg TD DAILY #30 patch.td24 PredniSONE 10 mg PO AD #9 tablet Home Medications: Albuterol Sulfate [Proair Hfa] 2 puff IH Q4H PRN 04/21/16 [History] Famotidine [Pepcid] 20 mg PO BID 04/21/16 [History] Gabapentin [Neurontin] 600 mg PO TID 04/21/16 [History] Nebivolol [Bystolic] 5 mg PO DAILY 04/21/16 [History] Simvastatin [Zocor] 40 mg PO HS 04/21/16 [History] TraMADol [Ultram] 50 mg PO TID PRN 04/21/16 [History] Tamsulosin HCl [Flomax] 0.4 mg PO DAILY #30 cap.er.24h 09/14/16 [Rx] D-Methorphan Hb/P-Epd HCl/Bpm [Bromfed Dm Cough Syrup] 10 ml PO Q6-8H PRN #240 ml 12/30/16 [Rx] Acetaminophen [Tylenol] 650 mg PO BID PRN 01/05/17 [History] Ipratropium/Albuterol Neb [Duoneb] 3 ml IH Q4HR 60 Days 01/11/17 [Rx] Lactobacillus [Culturelle] 1 each PO BID #20 cap.sprink 01/11/17 [Rx] Levofloxacin [Levaquin] 750 mg PO DAILY #1 tablet 01/11/17 [Rx] Nicotine Patch [Nicoderm] 21 mg TD DAILY #30 patch.td24 01/11/17 [Rx] PredniSONE 10 mg PO AD #9 tablet 01/11/17 [Rx] Allergies/Adverse Reactions: Allergies codeine Adverse Reaction (Verified 01/05/17 16:06) Vomiting Penicillins [PCN] Adverse Reaction (Verified 01/05/17 16:06) Vomiting Certification: Further, I certify that my clinical findings support that this patient is homebound (i.e. absences from home require considerable and taxing effort and are for medical reasons or yazdanism services or infrequently or short duration when for other reasons) because: Homebound Reason: Patient requires assistance of a person or device to safely leave home, Leaving home requires considerable and taxing effort due to condition Attestation: My signature below is to certify that this patient is under my care and that I, or nurse practitioner, or a physician's school psychologist assistant working with me, has a face-to -face encounter with this patient.
--- NOTE | 2017-01-12 16:58 | Venous Imaging Report ---
LE Venous Duplex Patient Name:Kj Ngo Order Number:[id number] Procedure Date:01/11/2017 Date:2Age:76 yrs Gender:Male Location:[facility] Room #: 3A55 Block Trimmer:Praveen Patrick RVT, RDCS Referring MD:Micki Franco MD naval aircrewman:Aiden Swartz DO Reading MD:Zhao Joyce MD Primary Indications:LLE swelling Secondary Indications: Impressions: Left lower extremity: normal superficial and deep exam. Recommendations: After imaging the patient returned to their room. Test completed on 01/11/2017 at 10:11:04 am. Critical findings reported to VIELKA Cavazos in person at 10:15:00 am on 01/11/2017 by Praveen Patrick RVT, RDCS. Findings Venous Duplex Results: Right: Venous imaging of the lower extremity reveals full patency and normal vessel compressibility of the right common femoral. Doppler signals in the evaluated veins were normal. Left: Venous imaging of the lower extremity reveals full patency and normal vessel compressibility of the left distal iliac, left common femoral, left superficial femoral, left popliteal, left posterior tibial, left peroneal, left great saphenous and left lesser saphenous. Doppler signals in the evaluated veins were normal. Lower Extremity Venous Duplex Side Vein Compress Spontaneous Flow Augment Diameter (cm) Depth (cm) Left Distal Iliac Normal Yes Phasic Yes Left Common Femoral Normal Yes Phasic Yes Left Superficial Femoral Normal Yes Phasic Yes Left Popliteal Normal Yes Phasic Yes Left Posterior Tibial Normal Yes Phasic Yes Left Peroneal Normal Yes Phasic Yes Left Great Saphenous Normal Yes Phasic Yes Left Lesser Saphenous Normal Yes Phasic Yes Right Common Femoral Normal Yes Phasic Yes Updated by Zhao Joyce MD on 01/12/2017 4:51:37 PM electronically signed on 01/12/2017 4:51:46 PM with status of Final
[2017-01-13 07:29] LABS: Influenza A PCR Body Fluid NOT DETECTED; Influenza B PCR Body Fluid NOT DETECTED; RSV PCR Body Fluid NOT DETECTED
== END 2017-01-11 16:02 | disposition home health service (06) | DRG 668 ==
LOC: 3ANU 11:55 → EMEROO 11:55 → SUATTDRO 15:42 → 3ANU 16:28 → SUATTDRO 01-07 13:13
PROVIDERS: ADMIT Nurse Practitioner Acute Care; ATTEND Internal Medicine